=== PATIENT | female | born 1970 | race Caucasian/White ===

== ENCOUNTER 2016-08-08 06:28 | Day surgery (SDC) | payer OTHER ==
[2016-07-27 12:13] VITALS: BMI 23.2
[~2016-08-08 06:28] MED LIST: LACTATED RINGERS 1,000 ML IV SCH
[2016-08-08] MEDS ORDERED: LIDOCAINE 1% 20 ML VIAL (10MG/ML) FOR IV START INTRADERMA ONE (06:40)
[2016-08-08 06:50] VITALS: TEMP 98.4
[2016-08-08] MEDS ORDERED: BUPIVACAINE (PF) 0.5% 30 ML VIAL ONE (07:12)
[2016-08-08] MEDS ORDERED: MIDAZOLAM 2 MG/2 ML VIAL ONE (07:12)
[2016-08-08] MEDS ORDERED: TRIAMCINOLONE ACETONIDE 40 MG/ML 1 ML VIAL ONE (07:12)
[2016-08-08] MEDS ORDERED: fentaNYL (PF) 50 MCG/ML 2 ML AMP ONE (07:12)
--- NOTE | 2016-08-08 07:34 | P.PCN ---
Date of Procedure: 08/08/16 Preoperative Diagnosis: Right sacroiliitis Postoperative Diagnosis: Right sacroiliitis Procedure(s) Performed: Right sacroiliac joint steroid injection under fluoroscopic guidance Implants: Anesthesia: MAC Surgeon: Gt Pop Pathology: none sent Condition: stable Disposition: PACU Indications for Procedure: Operative Findings: Description of Procedure: The patient was seen in preop holding area consent was obtained patient was brought into the procedure room and placed in prone position. Skin was prepped with the ChloraPrep and draped in a sterile manner. Lidocaine 1% was used to numb the skin up at the target point that was chosen as follows: the right sacroiliac joint was identified on the AP view of fluoroscopy then the C-arm was tilted to the left oblique view to superimpose the anterior and posterior joint lines on each other and the target point was the inferior one third of this unified joint line. I used 22-gauge 3-1/2 inch Quincke spinal needle for this procedure and after entering the sacroiliac joint then injected 40 mg of Kenalog was 2 MLS of Marcaine 0.5%. patient tolerated procedure well.
[2016-08-08 07:44] VITALS: RESP 18
[2016-08-08 08:01] VITALS: BP 99/74; PULSE 66
[2016-08-08] MEDS ORDERED: IV FLUID CONTINUATION 1,000 ML IV ONE (08:02)
--- NOTE | 2016-08-08 11:30 | FL ---
EXAMINATION TYPE: FL guided pain mgmt statistic DATE OF EXAM: 08/08/2016 7:35 AM COMPARISON: NONE HISTORY: Pain Fluoroscopy support supplied to the referring clinician. See dictated report from anesthesia, 7 sec onds fluoroscopy time supplied, single intraoperative C-arm image documents the procedure
== END 2016-08-08 08:07 | disposition home or self-care (01) ==
LOC: ORPAIN 06:28
PROVIDERS: ATTEND Anesthesiology
DX: M46.1 Sacroiliitis, not elsewhere classified (principal); Z79.899 Other long term (current) drug therapy; Z88.1 Allergy status to other antibiotic agents; Z91.09 Other allergy status, other than to drugs and biological substances
CPT/HCPCS: J2250; J3301; J3010; G0260; 27096

== ENCOUNTER → 2016-09-05 | Outpatient (CLI) | payer OTHER ==
[2016-09-05 14:02] VITALS: BP 142/84; PULSE 80; RESP 20; TEMP 98.1
--- NOTE | 2016-09-06 12:01 | P.PN ---
Subjective This is follow-up visit for this patient with a history of severe and chronic low back pain secondary to right sacroiliitis, lumbar spondylosis with facet arthropathy, we have done interventional pain management injection, right side sacroiliac joint steroid injection, and patient gets more than 50% improvement in her low back pain on 2 different occasions , and is currently on pain medications 1-amitriptyline 25 mg daily at bedtime 2-baclofen 10 mg half a tablet every 8 hours Patient denies any side effects of the medication, denies excessive drowsiness or sleepiness, denies suicidal ideation, and reports that the current pain medication is NOT helping To control the pain and improve activity of daily living Physical Examinations : 1-Constitutiona : Cooperative , not in acute distress . 2-HEENT : nech ; supple , no Lymphadenopathy , no Thyromegaly , normal thyroid size . eyes : no ptosis , no icterus, no photophobia . ENT : normal of hearing , normal oropharynx , no Thrush . 3- Respiratory : Chest clear to auscultations Bilaterally , no wheezing , no Rhonchi . 4- Cardiovascular : regular rate and rhythem , S1 , S2 , no S3 , no S4. 5- Gastrointestinal : abdomen soft no tenderness , bowel sounds positive all four quadrents , no organomegally . 6- Genitourinary : Defferred . 7- neurologic : Cranial nerve II to XII intact , no focal neurological deffecit . 8-psychatric : alert , oriented X 3 , appropriate affect , intact judgment and insight . 9-Lymphatic : no Lymphadenopathy . 10- musculoskeltal : exams of the cervical spine = motor strength normal bilateral upper extremities facet loading test cervical area positive. exams of the Lumber spine = motor strength lower extremities ,thigh and legs .5/5 deep tendon reflexes : normal Knee Jerk , normal ankle Jerk . lumber facet Loading Test positive strait leg raising test negative Fabere test negative Range of motion: Range of motion in flexion of the lumbar spine 30 degrees Range of motion range of motion of extension of the lumbar spine 10 Sever tenderness over the Sacroiliac joint on the Right Assessment and plan = - Chronic low back pain secondary to lumbar spondylosis, and right sacroiliitis patient had a good result after the sacroiliac joint steroid injection done twice, and she gets more than 50% improvement in her low back pain after the sacroiliac joint steroid injection, for this reason patient will be good candidate to have radiofrequency ablation on the right side does sometimes of L5 -S1 and the lateral branches of right S1/right S2/right S3 Objective - Vital Signs Vital signs: Vital Signs Temp 98.1 F 09/05/16 13:54 Pulse 80 09/05/16 13:54 Resp 20 09/05/16 13:54 BP 142/84 09/05/16 13:54 Pulse Ox 96 09/05/16 13:54 Intake & Output 09/05/16 09/06/16 09/06/16 18:59 06:59 18:59 Weight 58.513 kg
== END | disposition home or self-care (01) ==
LOC: PNWHC3 13:39
PROVIDERS: ATTEND Specialist
DX: G89.29 Other chronic pain (principal); M47.896 Other spondylosis, lumbar region; M46.96 Unspecified inflammatory spondylopathy, lumbar region; M46.1 Sacroiliitis, not elsewhere classified; Z79.899 Other long term (current) drug therapy
CPT/HCPCS: 99211

== ENCOUNTER 2016-10-12 11:37 | Day surgery (SDC) | payer OTHER ==
[2016-10-11 14:27] VITALS: BMI 24.7
[2016-10-12 12:27] VITALS: TEMP 97.2
[2016-10-12] MEDS ORDERED: LIDOCAINE 1% 20 ML VIAL (10MG/ML) FOR IV START INTRADERMA ONE (12:36)
[2016-10-12] MEDS: LACTATED RINGERS 1,000 ML IV SCH ×2 (12:36→12:51)
[2016-10-12] MEDS ORDERED: MIDAZOLAM 2 MG/2 ML VIAL ONE (12:54)
[2016-10-12] MEDS ORDERED: TRIAMCINOLONE ACETONIDE 40 MG/ML 1 ML VIAL ONE (12:54)
[2016-10-12] MEDS ORDERED: fentaNYL (PF) 50 MCG/ML 2 ML AMP ONE (12:54)
[2016-10-12] MEDS ORDERED: IV FLUID CONTINUATION 650 ML IV ONE (13:35)
--- NOTE | 2016-10-12 13:37 | FL ---
EXAMINATION TYPE: FL guided pain mgmt statistic DATE OF EXAM: 10/12/2016 1:28 PM CLINICAL HISTORY: Low back pain. TECHNIQUE: Fluoroscopy. COMPARISON: None. FINDINGS: Fluoroscopic guidance was provided during pain relief procedure performed by Dr. Elmore . A total of 7 seconds of fluoroscopic time was utilized during the procedure and two spot images are a cquired. Images acquired shows needle localization level of the lumbosacral junction off the midline . IMPRESSION: As Above.
[2016-10-12 13:39] VITALS: RESP 18
--- NOTE | 2016-10-12 13:42 | P.PCN ---
Date of Procedure: 10/12/16 Surgeon: Mejia Elmore Pathology: none sent Condition: stable Disposition: PACU Description of Procedure: PREOPERATIVE DIAGNOSIS: Sacroiliitis; lumbar spondylosis without myelopathy POSTOPERATIVE DIAGNOSIS: Sacroiliitis; lumbar spondylosis without myelopathy PROCEDURE: Radiofrequency thermocoagulation/ablation of the Medial branch of L5 and S1, S2, S3 lateral branch levels under fluoroscopic guidance, right ANESTHESIA: Local with 1% lidocaine; IV sedation with Versed/fentanyl EBL: Minimal PROCEDURE INDICATION: The patient with low back pain secondary to sacroilitis with marked decrease in pain with prior sacroiliac joint injections. No use of blood thinners. PROCEDURE DESCRIPTION: The patient was seen and identified in the preoperative area. Risks, benefits, complications, and alternatives were discussed with the patient, with risks including but not limited to bleeding, infection, nerve damage, incomplete pain relief, and allergic reactions to medications. The patient agreed to proceed with the procedure and signed the informed consent after all questions were answered. IV was started. Vital signs were stable throughout the procedure. Patient was taken to the OR and time out was completed to verify proper procedure, laterality of pain and procedure, and allergies. The patient was placed in the prone position on procedure table and a pillow was placed under the abdomen to reduce lumbar lordosis. The lumbosacral area was prepped and draped in the usual sterile fashion. Vital signs were closely monitored during the procedure. L5 Medial Branch: Using right oblique fluoroscopy, the junction of the transverse process and the superior articular process of the top of the sacrum on the right side, which correspond to the fluoroscopic image of the "eye of the [place] dog" was identified. Skin and deeper tissues were localized with 1% lidocaine at the identified level. Then using fluoroscopy, a 10-cm 18-gauge radiofrequency cannula with a 10-mm active tip was was advanced under fluoroscopic guidance until contact was made with periosteum. At this level, the Sensory testing of L5 Medial branch was performed at 50 Hz and 0 to 1 volt with production of concordant pain. Motor stimulation was done at 2 Hz with stimulation of multifidus muscle contraction at (0.1-2.5) volts. No radicular symptoms or paresthesias were produced during the testing. Subsequently, the L5 medial branch was subjected to a radiofrequency ablation at a mode of 90 seconds at 80 degrees Celsius after negative motor and sensory testing as indicated and after injecting 0.5 ml of preservative free Lidocaine 1%. Then after the radiofrequency procedure was done, 1 mL of a solution containing 4 mL of 0.5% preservative-free lidocaine mixed with 40 mg of Kenalog. S1, S2, and S3 Medial branches: Using the oblique position, the right sacroiliac joint was identified. Skin and deeper tissues corresponding to the site were anesthetized with 1% lidocaine. Under fluoroscopic guidance, a total of three 10-cm 18-gauge radiofrequency cannula with 10-mm active tips were advanced to the lateral aspects of the S1, S2, and S3 vertebral foramina. Subsequently, sensory and motor testings were performed at a total of 3 segments at 50 Hz and 2 Hz respectively which produced concordant pain without radiculopathy or paresthesia. Then each segment was subjected to radiofrequency ablation at a mode of 90 seconds at 80 degrees Celsius for a total of 3 lesions with the bipolar technique. Then after the radiofrequency procedure was done, each site was injected with 1 mL of the aforementioned solution containing 4 mL of 0.5% preservative-free lidocaine mixed with 40 mg of Kenalog. The needles were withdrawn. Area was cleaned. Band-Aid was applied. COMPLICATIONS: None. COMMENTS: DISPOSITION / PLANS: The patient was placed in a supine position and transferred to the recovery area in a stable condition for observation and was discharged from the recovery room after meeting discharge criteria. Home discharge instructions given to the patient by the staff. The patient was reexamined prior to discharge. The patient will schedule a follow up in clinic in 4-6 weeks.
[2016-10-12 13:56] VITALS: BP 108/64; PULSE 80
--- NOTE | 2016-10-16 06:35 | CDI ---
Dear Dr. Elmore, Your Procedure Note documents that IV sedation with Versed/Fentanyl was provided. On the Pain Procedure Record, nothing is checked off under Anesthesia Plan. Also, per anesthesia the drugs used doesn't confer any specific method of anesthesia, i.e. Moderate/Conscious sedation or GA(General Anesthesia). It is how the practitioner uses them that creates the specific anesthesia method. This is documentation that need clarification. Please clarify if the sedation provided Wolfgang Esther was Moderate/Conscious or GA /Unconscious sedation. Please document this clarification as an addendum to the Procedure Note. Thank you for your time, Isaura Valdez,[facility] Outpatient Botany Technician Sandeep and [employer]apha[employer] [place] [email or web address] GARCIA
== END 2016-10-12 14:00 | disposition home or self-care (01) ==
LOC: ORPAIN 11:37
PROVIDERS: ATTEND Anesthesiology
DX: M46.1 Sacroiliitis, not elsewhere classified (principal); M47.816 Spondylosis without myelopathy or radiculopathy, lumbar region; Z79.899 Other long term (current) drug therapy; Z88.1 Allergy status to other antibiotic agents; Z91.09 Other allergy status, other than to drugs and biological substances
CPT/HCPCS: 64640 ×3; 64635; 99152; J2250; J3301; J3010

== ENCOUNTER → 2016-11-15 | Outpatient (CLI) | payer OTHER ==
--- NOTE | 2016-11-16 09:09 | P.CONS ---
History of Present Illness - Reason for Consult Consult date: 11/15/16 - History of Present Illness This is followed visit for this 46 years old female with a chronic history of severe low back pain, status post radiofrequency ablation of the medial branch/ L branches of L5-s1 , and lateral branches of S1-S2 and S3, which was done in , patient reported that a few weeks after the radiofrequency she started feeling severe low back pain with radiation to the right hip area, she denies any motor or sensory deficit, and she reported that the pain increases with any activity, she denies any fever or night sweats, she denies any change in the bowel movement or urination, the intensity of the pain fluctuates between 5/10 and increases occasionally to 8/10 Past Medical History Past Medical History: COPD, Fibromyalgia, GERD/Reflux Additional Past Medical History / Comment(s): Celiac History of Any Multi-Drug Resistant Organisms: None Reported Past Surgical History: Hysterectomy, Tubal Ligation Additional Past Surgical History / Comment(s): PAIN PROC.; Polyps removed from vocal cords Past Anesthesia/Blood Transfusion Reactions: No Reported Reaction Past Psychological History: Bipolar, Depression Additional Psychological History / Comment(s): NOT ON ANY RX Smoking Status: Current every day smoker Past Alcohol Use History: Occasional Additional Past Alcohol Use History / Comment(s): HAS BEEN SMOKING SINCE AGE 16 , DOWN TO 2 CIG. DAILY Past Drug Use History: Marijuana Additional Drug Use History / Comment(s): MARIJUANA 2X PER DAY; med. card - Past Family History Mother Family Medical History: Deep Vein Thrombosis (DVT) Father Family Medical History: Cancer Medications and Allergies Home Medications Medication Instructions Recorded Confirmed Type Flunisolide [Aerospan] 1 - 2 puff INHALATION BID PRN 07/27/16 11/15/16 History Omeprazole [Omeprazole] 1 tab PO DAILY 11/15/16 11/15/16 History Allergies Allergy/AdvReac Type Severity Reaction Status Date / Time cephalexin [From Keflex] Allergy Abdominal Verified 11/15/16 14:24 Pain,UTI gluten Allergy Abdominal Verified 11/15/16 14:24 Pain Physical Exam Physical Examinations : 1-Constitutiona : Cooperative , not in acute distress . 2-HEENT : nech ; supple , no Lymphadenopathy , no Thyromegaly , normal thyroid size . eyes : no ptosis , no icterus, no photophobia . ENT : normal of hearing , normal oropharynx , no Thrush . 3- Respiratory : Chest clear to auscultations Bilaterally , no wheezing , no Rhonchi . 4- Cardiovascular : regular rate and rhythem , S1 , S2 , no S3 , no S4. 5- Gastrointestinal : abdomen soft no tenderness , bowel sounds positive all four quadrents , no organomegally . 6- Genitourinary : Defferred . 7- neurologic : Cranial nerve II to XII intact , no focal neurological deffecit . 8-psychatric : alert , oriented X 3 , appropriate affect , intact judgment and insight . 9-Lymphatic : no Lymphadenopathy . 10- musculoskeltal : exams of the cervical spine = normal motor stregnth in the upper extremities bilaterally exams of the Lumber spine = normal moter stegnth lower extremities ,thigh and legs .5/5 deep tendon reflexes : normal Knee Jerk , normal ankle Jerk . negative lumber facet Loading Test strait leg raising test positive at 30 degree , RT , and negative on the left side , Fabere test positive RT and negative on the LT .side There is no tenderness over the sacroiliac joint bilaterally Results Comments: MRI of the lumbar spine done 11/11/2015= L2-3 bulging disc disease/L4 5 anterior tear and disc bulging and facet arthropathy and mild foraminal narrowing, L5-S1 mild facet degeneration and disc bulging Assessment and Plan Plan: Assessment and plan = - Chronic low back pain secondary to lumbar degenerative disc disease , lumbar spondylosis with facet arthropathy without myelopathy , and sacroiliitis Status post radiofrequency ablation of the right sacroiliac joint. The patient having symptoms mostly coming from the lumbar disc degeneration and lumbar spondylosis Patient signed the narcotic agreement , and was orally counseled not to overuse , abuse , divert, or sell medications ,and take them as prescribed only , and the patient was counseled against driving and while you are using the narcotic medication also not to use alcohol or any illicit drugs and the patient verbalized understanding that lack of compliance and could result in failure to renew narcotics prescriptions and possible discharge from the clinic - diagnoses, prognosis, and treatment options including but not limited to physical therapy, surgical interventions, interventional therapies and medication management including narcotics and adjuvant medication were discussed with the patient and all questions answered to the patient's satisfaction. Patient could benefit from amitriptyline 25 mg daily at bedtime, dispense 30 with 1 refill and also she could benefit from increasing the dose of baclofen to 10 mg 3 times a day, currently she is getting 5 mg 3 times a day, patient has medical marijuana card we cannot give him any opioid prescription, Angi will be scheduled to have lumbar epidural steroid injection under fluoroscopy guidance(right paramedian approach) Time with Patient: Less than 30
== END | disposition home or self-care (01) ==
LOC: PNWHC3 14:09
PROVIDERS: ATTEND Specialist
DX: M51.36 Other intervertebral disc degeneration, lumbar region (principal); M47.816 Spondylosis without myelopathy or radiculopathy, lumbar region; M46.96 Unspecified inflammatory spondylopathy, lumbar region; G89.29 Other chronic pain; J44.9 Chronic obstructive pulmonary disease, unspecified; K21.9 Gastro-esophageal reflux disease without esophagitis; M79.7 Fibromyalgia; F17.200 Nicotine dependence, unspecified, uncomplicated; F32.9 Major depressive disorder, single episode, unspecified; Z88.1 Allergy status to other antibiotic agents; Z79.899 Other long term (current) drug therapy
CPT/HCPCS: 99211

== ENCOUNTER 2016-12-19 08:16 | Day surgery (SDC) | payer OTHER ==
[2016-12-19 08:59] VITALS: RESP 18; TEMP 96.7
[2016-12-19] MEDS ORDERED: LIDOCAINE 1% 20 ML VIAL (10MG/ML) FOR IV START INTRADERMA ONE (09:14)
[2016-12-19] MEDS ORDERED: IOHEXOL 180 MG/ML 1 ML ML ONE (09:32)
[2016-12-19] MEDS ORDERED: MIDAZOLAM 2 MG/2 ML VIAL ONE (09:32)
[2016-12-19] MEDS ORDERED: DEXAMETHASONE SOD PHOSPHATE 10 MG/ML 1 ML VIAL ONE (09:32)
[2016-12-19] MEDS ORDERED: fentaNYL (PF) 50 MCG/ML 2 ML AMP ONE (09:32)
--- NOTE | 2016-12-19 10:01 | P.PCN ---
Date of Procedure: 12/19/16 Preoperative Diagnosis: Postoperative Diagnosis: Procedure(s) Performed: Implants: Surgeon: Mejia Elmore Pathology: none sent Condition: stable Disposition: PACU Indications for Procedure: Operative Findings: Description of Procedure: PREOPERATIVE DIAGNOSIS: 1-Lumbar radiculitis. POSTOPERATIVE DIAGNOSIS: 1-Lumbar radiculitis. PROCEDURE 1. Lumbar epidural steroid injection under fluoroscopic guidance at the L4-L5 level. 2. Lumbar epidurogram. ANESTHESIA: Local with 1% lidocaine; IV sedation with Versed/fentanyl. EBL: Minimal PROCEDURE INDICATION: The patient with low back pain and radiculitis symptoms unresponsive to conservative treatment. Fluoroscopy was used to optimize visualization of the needle placement and to maximize safety. No use of blood thinners. LESI #1 at this visit. PROCEDURE DESCRIPTION / TECHNIQUE: The patient was seen and identified in the preoperative area. Risks, benefits, complications, and alternatives were discussed with the patient, including but not limited to bleeding, infection, nerve damage, allergic reactions to medications, and incomplete pain relief. The patient agreed to proceed with the procedure and signed the consent after all questions were answered. IV was started, and vital signs were stable. Patient was taken to the OR and time out was completed to confirm patient position, procedure, laterality of pain, and allergies. The patient was placed in the prone position on procedure table and a pillow was placed under the abdomen to reduce lumbar lordosis. The lumbosacral area was prepped and draped in the usual sterile fashion. Critical pause was taken. Vital signs were closely monitored during the procedure. Conscious sedation was used during the procedure to decrease patients anxiety. Using anterior-posterior fluoroscopy, the L4-L5 interlaminar space was identified and the skin over this site was marked and then infiltrated with 1% lidocaine subcutaneously in a right paramedian fashion. Subsequently, a 20- gauge 3.5-inch Tuohy epidural needle was inserted and advanced toward the epidural space using the Loss of resistance technique and guided by AP and lateral fluoroscopy. The correct needle position in the epidural space was verified with the injection of 2 mL of the water soluble contrast dye Omnipaque 300 contrast and observing an excellent epidurogram with the epidural spread of the dye, after negative aspiration for blood and CSF and in the absence of paresthesias. Again after negative aspiration, a 8 ml mixture containing 20 mg of PF Decadron and 5 ml of preservative free Normal Saline, and 2 ml of preservative free lidocaine 1% solution was injected and a washout of epidurogram was seen. Needle was withdrawn intact, skin was cleansed, and bandages were applied. COMPLICATIONS: None COMMENTS: DISPOSITION / PLANS: The patient was placed in a supine position and transferred to the recovery area in a stable condition for observation. There was no evidence of lower extremity motor or sensory deficit after the procedure. Patient was discharged from the recovery room after meeting discharge criteria. Home discharge instructions were given to the patient by the staff. The patient was reexamined prior to discharge and there were no issues. The patient will schedule a follow up in the clinic in 2-4 weeks.
[2016-12-19] MEDS ORDERED: IV FLUID CONTINUATION 1,000 ML IV ONE (10:25)
[2016-12-19 10:34] VITALS: BP 125/83; PULSE 75
--- NOTE | 2016-12-19 10:46 | FL ---
Fluoroscopy INDICATION: Pain FINDINGS: Fluoroscopy time: 8 seconds. Images obtained: 3. IMPRESSIONS: 1. Documentation of fluoroscopy.
== END 2016-12-19 10:37 | disposition home or self-care (01) ==
LOC: ORPAIN 08:16
PROVIDERS: ATTEND Anesthesiology
DX: M54.16 Radiculopathy, lumbar region (principal); Z88.1 Allergy status to other antibiotic agents; Z91.02 Food additives allergy status
CPT/HCPCS: 62323; J2250; J1100; Q9965; J3010

== ENCOUNTER 2017-01-18 10:11 | Day surgery (SDC) | payer OTHER ==
[2017-01-16 16:12] VITALS: BMI 25.1
[2017-01-18 11:04] VITALS: TEMP 96.6
[2017-01-18] MEDS: LACTATED RINGERS 1,000 ML IV SCH ×2 (11:10→11:24)
[2017-01-18] MEDS ORDERED: LIDOCAINE 1% 20 ML VIAL (10MG/ML) FOR IV START INTRADERMA ONE (11:10)
[2017-01-18] MEDS ORDERED: MIDAZOLAM 2 MG/2 ML VIAL ONE (11:25)
[2017-01-18] MEDS ORDERED: fentaNYL (PF) 50 MCG/ML 2 ML AMP ONE (11:25)
[2017-01-18] MEDS ORDERED: DEXAMETHASONE SOD PHOS (MDV) 100 MG/10 ML VIAL ONE (11:25)
[2017-01-18] MEDS ORDERED: IOHEXOL 180 MG/ML 1 ML ML ONE (11:25)
--- NOTE | 2017-01-18 11:41 | P.PCN ---
Date of Procedure: 01/18/17 Preoperative Diagnosis: Postoperative Diagnosis: Procedure(s) Performed: PREOPERATIVE DIAGNOSIS: 1- Lumbar Degenerative Disc Diseases 2-Lumbar spondylosis with Facet arthropathy without myelopathy. 3-sacroiliitis POSTOPERATIVE DIAGNOSIS: 1-Lumber Degenerative Disc Diseases 2-Lumbar spondylosis with Facet arthropathy without myelopathy. 3-sacroiliitis PROCEDURE 1. Lumbar epidural steroid injection under fluoroscopic guidance at the L5-S1 level. 2. Lumbar epidurogram. ANESTHESIA: Local with 1% lidocaine 3 ml and IV sedation with Versed 2 mg , and fentanyle 100 Mcg EBL: Minimal PROCEDURE INDICATION: The patient with low back pain and radiculitis symptoms unresponsive to conservative treatment. Fluoroscopy was used to optimize visualization of the needle placement and to maximize safety. PROCEDURE DESCRIPTION / TECHNIQUE: The patient was seen and identified in the preoperative area. Risks, benefits , complications including but not limited to infections ,bleeding ,allergic reaction to the medications ,nerve damage and not complete pain releife , and alternatives were discussed with the patient. The patient agreed to proceed with the procedure and signed the consent. IV was started, and vital signs were stable. Patient was taken to the OR and time out was completed. The patient was placed in the prone position on procedure table and a pillow was placed under the abdomen to reduce lumbar lordosis. The lumbosacral area was prepped and draped in the usual sterile fashion.ere closely monitored during the procedure. Conscious sedation was used during the procedure to decrease patients anxiety. Vital signs was monitered during the entire procedure. Using anterior-posterior fluoroscopy, the L5-S1 interlaminar space was identified and the skin over this site was marked and then infiltrated with 1% lidocaine subcutaneously. Subsequently, a 20-gauge Tuohy epidural needle was inserted and advanced toward the epidural space using the ``Loss of resistance technique and guided by AP and lateral fluoroscopy. The correct needle position in the epidural space was verified with the injection of 2 mL of the water soluble contrast dye Omnipaque 180 contrast and observing an excellent epidurogram with the epidural spread of the dye, after negative aspiration for blood and CSF and in the absence of paresthesias. Again after negative aspiration, a 6 ml mixture containing 20 mg of Dexamethasone and 2 ml of preservative free Normal Saline, and 2 ml of preservative free lidocaine 1% solution was injected and a washout of epidurogram was seen. Needle was withdrawn intact, skin was cleansed, and bandages were applied. COMPLICATIONS: None DISPOSITION / PLANS: The patient was placed in a supine position and transferred to the recovery area in a stable condition for observation. There was no evidence of lower extremity motor or sensory deficit after the procedure. Patient was discharged from the recovery room after meeting discharge criteria. Home discharge instructions were given to the patient by the staff. The patient was reexamined prior to discharge. The patient will schedule a follow up in the clinic in 2-4 weeks. Implants: Indications for Procedure: Operative Findings: Description of Procedure:
[2017-01-18] MEDS ORDERED: IV FLUID CONTINUATION 1,000 ML IV ONE (11:47)
[2017-01-18 11:51] VITALS: RESP 18
--- NOTE | 2017-01-18 11:52 | FL ---
EXAMINATION TYPE: FL guided pain mgmt statistic DATE OF EXAM: 01/18/2017 HISTORY: Flouroscopy time 2 seconds of fluoroscopy provided. IMPRESSION: 1. Fluoroscopy time.
[2017-01-18 12:10] VITALS: BP 115/74; PULSE 74
== END 2017-01-18 12:31 | disposition home or self-care (01) ==
LOC: ORPAIN 10:11
PROVIDERS: ATTEND Specialist
DX: M51.16 Intervertebral disc disorders with radiculopathy, lumbar region (principal); M47.26 Other spondylosis with radiculopathy, lumbar region; M46.96 Unspecified inflammatory spondylopathy, lumbar region; M46.1 Sacroiliitis, not elsewhere classified; J44.9 Chronic obstructive pulmonary disease, unspecified; K90.0 Celiac disease; Z88.1 Allergy status to other antibiotic agents; Z91.02 Food additives allergy status
CPT/HCPCS: 62323; J2250; Q9965; J3010; J1100

== ENCOUNTER → 2017-02-07 | Outpatient (CLI) | payer OTHER ==
[2017-02-07 12:20] VITALS: BP 108/63; PULSE 80; RESP 18; TEMP 98
--- NOTE | 2017-02-07 12:46 | P.PN ---
Progress Note - Text Patient returns for followup for chronic back pain with radiation to hips. Patient recently underwent LESI x 2 with little relief. Patient continues on THC, baclofen, and Elavil medications for pain with good relief. Patient denies adverse drug effects from medications. Today, pt denies new-onset weakness, bowel/bladder incontinence, or any other signs or symptoms of cauda equina syndrome. There are no signs of acute intoxication, and no indications of medication diversion or overuse. In addition to above, 13-point review of systems is also negative for chest pain , shortness of breath, changes in vision, changes in hearing, new onset weakness , abdominal pain, diarrhea, extreme fatigue, malaise, fever, skin changes, homicidal or suicidal ideation, or bowel or bladder incontinence. Vital Signs: Reviewed in EMR Gen: WDWN, AAOx3, NAD HEENT: NCAT, EOMI, hearing grossly normal Pulm: resp unlabored Abd: soft, NT, ND Neck: supple, trachea midline ROM in flexion lumbar spine: reduced ROM in extension lumbar spine: reduced with greater restriction Lumbar paravertebral tenderness: + Facet loading: ++ bilateral SI joint tenderness: + R side David's test: + R side Straight leg raise: neg Neuro: CN II-XII grossly intact, muscle strength lower extremities PRESERVED Imaging: Reviewed in EMR Assessment: 1. lumbar spondylosis without myelopathy 2. SIJ dysfunction 3. chronic pain syndrome Plan: 1. Explanation: Opioid and psychological risk scores were reviewed. Diagnoses , prognoses, and multiple treatment options including but not limited to physical therapy, interventional therapies, adjuvant medical therapies, narcotic medication therapies, and surgery were discussed with the patient and all questions were answered to the patient's satisfaction. 2. Opioid agreement: no opioids prescribed today 3. Counseling: The patient was counseled extensively on SMOKING CESSATION, BODY MASS INDEX, EXERCISE. Specifically, the patient was instructed regarding the importance of smoking cessation, obesity, and exercise in the context of both chronic pain and overall health. 4. Procedures: lumbar MBB bilateral 5. Consultations: None 6. Investigations: None 7. Medications: baclofen increased to 15 mg TID (gave prescription for baclofen 5 mg #90 in addition to current), patient has refill for Elavil 8. Disposition: f/u for procedure as scheduled PQRS measures: 1-Patient's medications are documented in the chart. 2-Tobacco use is positive 3-Patient has not had a pneumococcal vaccine. 4-Advanced care planning discussed, patient unable to give. 5-Opioid contract signed with the patient. 6-Pain positive, follow-up visit or procedure scheduled 7-Patient's blood pressure measured and documented, and WNL. 8-Patient's weight was measured, and body mass index within the normal limits. 9-Patient WAS NOT identified as an unhealthy alcohol user.
== END | disposition home or self-care (01) ==
LOC: PNWHC3 12:04
PROVIDERS: ATTEND Anesthesiology
DX: M47.816 Spondylosis without myelopathy or radiculopathy, lumbar region (principal); M53.3 Sacrococcygeal disorders, not elsewhere classified; G89.4 Chronic pain syndrome
CPT/HCPCS: 99211

== ENCOUNTER 2017-02-27 06:18 | Day surgery (SDC) | payer OTHER ==
[2017-02-26 09:39] VITALS: BMI 23.6
[2017-02-27] MEDS ORDERED: LIDOCAINE 1% 20 ML VIAL (10MG/ML) FOR IV START INTRADERMA ONE (07:13)
[2017-02-27] MEDS ORDERED: LACTATED RINGERS 1,000 ML IV SCH (07:15)
[2017-02-27 08:15] VITALS: RESP 18
--- NOTE | 2017-02-27 08:43 | P.PCN ---
Date of Procedure: 02/27/17 Preoperative Diagnosis: Postoperative Diagnosis: Procedure(s) Performed: Implants: Surgeon: Mejia Elmore Pathology: none sent Condition: stable Disposition: PACU Indications for Procedure: Operative Findings: Description of Procedure: PREOPERATIVE DIAGNOSIS: L3-L4, L4-L5, and L5-S1 spondylosis without myelopathy and facet arthropathy. POSTOPERATIVE DIAGNOSIS: L3-L4, L4-L5, and L5-S1 spondylosis without myelopathy and facet arthropathy. PROCEDURE DESCRIPTION: Patient presents for L3-L4, L4-L5 and L5-S1 diagnostic medial branch blocks under fluoroscopic guidance. The procedure is performed using fluoroscopic guidance during needle placement to assure proper position and maximize safety. ANESTHESIA: Local with 1% lidocaine; conscious sedation with Versed only EBL: Minimal PROCEDURE INDICATION: Patient with lumbar spondylosis and facet arthropathy signs and symptoms, here for diagnostic medial branch block #1. Pt does not take any blood thinning medications. PROCEDURE DESCRIPTION: The patient was seen and identified in the preoperative area. Risks, benefits, complications, and alternatives were discussed with the patient (including but not limited to incomplete pain relief, bleeding, infection, nerve damage, and allergies to medications), the patient agreed to proceed with the procedure and signed the consent after all questions were answered. Patient was taken to the OR and time out was completed to verify proper patient, position, laterality of pain, and allergies. Pt was placed in the prone position and a pillow was placed under the abdomen to reduce lumbar lordosis. The lumbosacral area was prepped and draped in the usual sterile fashion. Using oblique fluoroscopy, the eye of the "Franklin dog" of right L4 vertebral body, which corresponds to the path of the medial branch originating from the level above, which is L3 in this case, was identified. Subsequently, a 22-gauge 3.5-inch spinal needle was inserted under fluoroscopic guidance toward the eye of the "Franklin dog" of the right L4 vertebral body, corresponding to the junction of the superior articular process and the transverse process of the pedicle of the same level. After needle tip confirmation on lateral view and after negative aspiration for CSF and blood and without paresthesias, 1 mL of a 6 ml solution of 0.5% preservative-free bupivacaine and 40 mg Kenalog was injected. Subsequently the needle was withdrawn intact and the same procedure was repeated for the right L4, right L5, left L3, left L4, and left L5 medial branches which together with right L3 medial branch correspond to the sensory innervation of the bilateral L3-L4, L4-L5, and L5-S1 facet joints. Needle was withdrawn intact after each injection. At the end of the procedure, the skin was cleansed and bandages were applied. COMPLICATIONS: None. DISPOSITION/PLAN: The patient taken to the recovery area after the procedure in a stable condition for observation. Patient was reexamined prior to discharge and there were no issues. Patient was discharged home, accompanied by an adult, after meeting discharged criteria. Discharge instructions were give to the patient by the staff. Patient was specifically instructed not to drive today and to rest for the rest of the day. If relief, patient will follow up for second diagnostic LMBB.
[2017-02-27 08:45] VITALS: BP 135/87; PULSE 74
[2017-02-27] MEDS ORDERED: IV FLUID CONTINUATION 1,000 ML IV ONE (08:45)
--- NOTE | 2017-02-27 08:59 | FL ---
EXAMINATION TYPE: FL guided pain mgmt statistic DATE OF EXAM: 02/27/2017 FLUOROSCOPY Fluoroscopy time of 15 seconds was used during bilateral medial branch block. 6 image/s document/s t he procedure.
== END 2017-02-27 08:48 | disposition home or self-care (01) ==
LOC: ORPAIN 06:18
PROVIDERS: ATTEND Anesthesiology
DX: G89.4 Chronic pain syndrome (principal); M47.816 Spondylosis without myelopathy or radiculopathy, lumbar region; M47.817 Spondylosis without myelopathy or radiculopathy, lumbosacral region; M46.96 Unspecified inflammatory spondylopathy, lumbar region; M46.97 Unspecified inflammatory spondylopathy, lumbosacral region; M53.3 Sacrococcygeal disorders, not elsewhere classified; Z79.899 Other long term (current) drug therapy; Z72.0 Tobacco use
CPT/HCPCS: 64493; 64494; 64495; 99152; J2250; J3301; 99153

== ENCOUNTER 2017-03-20 06:17 | Day surgery (SDC) | payer OTHER ==
[2017-03-14 15:37] VITALS: BMI 21.9
[2017-03-20 07:08] VITALS: TEMP 97.2
[2017-03-20] MEDS ORDERED: LACTATED RINGERS 1,000 ML IV ONE (07:13)
[2017-03-20] MEDS ORDERED: LIDOCAINE 1% 20 ML VIAL (10MG/ML) FOR IV START INTRADERMA ONE (07:13)
[2017-03-20] MEDS ORDERED: LACTATED RINGERS 1,000 ML IV SCH (08:00)
--- NOTE | 2017-03-20 08:09 | P.PCN ---
Date of Procedure: 03/20/17 Preoperative Diagnosis: Postoperative Diagnosis: Procedure(s) Performed: Implants: Surgeon: Mejia Elmore Pathology: none sent Condition: stable Disposition: PACU Indications for Procedure: Operative Findings: Description of Procedure: PREOPERATIVE DIAGNOSIS: L3-L4, L4-L5, and L5-S1 spondylosis without myelopathy and facet arthropathy. POSTOPERATIVE DIAGNOSIS: L3-L4, L4-L5, and L5-S1 spondylosis without myelopathy and facet arthropathy. PROCEDURE DESCRIPTION: Patient presents for L3-L4, L4-L5 and L5-S1 diagnostic medial branch blocks under fluoroscopic guidance. The procedure is performed using fluoroscopic guidance during needle placement to assure proper position and maximize safety. ANESTHESIA: Local with 1% lidocaine; conscious sedation EBL: Minimal PROCEDURE INDICATION: Patient with lumbar facet arthropathy signs and symptoms, here for diagnostic medial branch block #2 after one week's >70% relief from first MBB. Pt does not take any blood thinning medications. PROCEDURE DESCRIPTION: The patient was seen and identified in the preoperative area. Risks, benefits, complications, and alternatives were discussed with the patient (including but not limited to incomplete pain relief, bleeding, infection, nerve damage, and allergies to medications), the patient agreed to proceed with the procedure and signed the consent after all questions were answered. Patient was taken to the OR and time out was completed to verify proper patient, position, laterality of pain, and allergies. Pt was placed in the prone position and a pillow was placed under the abdomen to reduce lumbar lordosis. The lumbosacral area was prepped and draped in the usual sterile fashion. Using oblique fluoroscopy, the eye of the "Franklin dog" of right L4 vertebral body, which corresponds to the path of the medial branch originating from the level above, which is L3 in this case, was identified. Subsequently, a 22-gauge 3.5-inch spinal needle was inserted under fluoroscopic guidance toward the eye of the "Franklin dog" of the right L4 vertebral body, corresponding to the junction of the superior articular process and the transverse process of the pedicle of the same level. After needle tip confirmation on lateral view and after negative aspiration for CSF and blood and without paresthesias, 1 mL of a 6 ml solution of 5 ml 0.5% preservative-free bupivacaine and 40 mg Kenalog was injected. Subsequently the needle was withdrawn intact and the same procedure was repeated for the right L4, right L5, left L3, left L4, and left L5 medial branches which together with right L3 medial branch correspond to the sensory innervation of the bilateral L3-L4, L4-L5, and L5-S1 facet joints. Needle was withdrawn intact after each injection. At the end of the procedure, the skin was cleansed and bandages were applied. COMPLICATIONS: None. DISPOSITION/PLAN: The patient taken to the recovery area after the procedure in a stable condition for observation. Patient was reexamined prior to discharge and there were no issues. Patient was discharged home, accompanied by an adult, after meeting discharged criteria. Discharge instructions were give to the patient by the staff. Patient was specifically instructed not to drive today and to rest for the rest of the day. If relief, patient will follow up for right lumbar RFA.
[2017-03-20] MEDS ORDERED: IV FLUID CONTINUATION 1,000 ML IV ONE (08:16)
[2017-03-20 08:31] VITALS: BP 120/81; PULSE 63; RESP 16
--- NOTE | 2017-03-20 08:39 | FL ---
Fluoroscopy History: Pain 7 SEC FLUORO
== END 2017-03-20 08:44 | disposition home or self-care (01) ==
LOC: ORPAIN 06:17
PROVIDERS: ATTEND Anesthesiology
DX: M47.816 Spondylosis without myelopathy or radiculopathy, lumbar region (principal); M47.817 Spondylosis without myelopathy or radiculopathy, lumbosacral region; M46.96 Unspecified inflammatory spondylopathy, lumbar region; M46.97 Unspecified inflammatory spondylopathy, lumbosacral region; K21.9 Gastro-esophageal reflux disease without esophagitis; Z79.899 Other long term (current) drug therapy; Z88.1 Allergy status to other antibiotic agents; Z91.09 Other allergy status, other than to drugs and biological substances
CPT/HCPCS: 64493; 64494; 64495; 99152; J2250; J3301

== ENCOUNTER → 2017-05-03 | Outpatient (CLI) | payer OTHER ==
[2017-05-03 14:20] VITALS: BP 126/79; PULSE 89; RESP 18; TEMP 98
--- NOTE | 2017-05-03 14:51 | P.CONS ---
History of Present Illness - Reason for Consult Consult date: 05/03/17 - History of Present Illness this is 46 years old female, is here for follow-up visit after diagnostic medial branch block lumbar area done twice,patient reported that she had more than 50% improvement in her low back pain after the diagnostic medial branch block on 2 different occasions, and she is here to discuss the results of the injection, she denies any motor or sensory deficit she denies any fever or night sweats Past Medical History Past Medical History: COPD, Fibromyalgia, GERD/Reflux, Osteoarthritis (OA) Additional Past Medical History / Comment(s): Celiac, ARTHRITIS IN BACK, ALPHA ONE LUNG DISEASE History of Any Multi-Drug Resistant Organisms: None Reported Past Surgical History: Hysterectomy, Tubal Ligation Additional Past Surgical History / Comment(s): PAIN PROC. Polyps removed from vocal cords. Past Anesthesia/Blood Transfusion Reactions: No Reported Reaction Smoking Status: Current every day smoker - Past Family History Mother Family Medical History: Deep Vein Thrombosis (DVT) Father Family Medical History: Cancer Medications and Allergies Home Medications Medication Instructions Recorded Confirmed Type Flunisolide [Aerospan] 1 - 2 puff INHALATION BID PRN 07/27/16 05/03/17 History Omeprazole [Omeprazole] 20 mg PO BID 11/15/16 05/03/17 History Amitriptyline HCl [Elavil] 25 mg PO HS 01/16/17 05/03/17 History Baclofen [Lioresal] 15 mg PO Q8H 02/26/17 05/03/17 History Allergies Allergy/AdvReac Type Severity Reaction Status Date / Time cephalexin [From Keflex] Allergy Abdominal Verified 05/03/17 14:07 Pain,UTI gluten Allergy Abdominal Verified 05/03/17 14:07 Pain Physical Exam Vitals: Vital Signs Temp Pulse Resp BP Pulse Ox 05/03/17 14:11 98 F 89 18 126/79 96 Intake and Output 05/02/17 05/03/17 05/03/17 22:59 06:59 14:59 Other: Weight 53.977 kg Patient Weight 05/04/17 06:59 Weight 53.977 kg Physical Examinations : 1-Constitutiona : Cooperative , not in acute distress . 2-HEENT : nech ; supple , no Lymphadenopathy , normal thyroid size . eyes : no ptosis , no icterus, no photophobia . ENT : normal of hearing , normal oropharynx , no Thrush . 3- Respiratory : Chest clear to auscultations Bilaterally , no wheezing , no Rhonchi . 4- Cardiovascular : regular rate and rhythem , S1 , S2 , no S3 , no S4. 5- Gastrointestinal : abdomen soft no tenderness , bowel sounds positive all four quadrents , no organomegally . 6- Genitourinary : Defferred . 7- neurologic : Cranial nerve II to XII intact , no focal neurological deffecit . 8-psychatric : alert , oriented X 3 , appropriate affect , intact judgment and insight . 9-Lymphatic : no Lymphadenopathy . 10- musculoskeltal : , Lumber spine = normal moter stegnth lower extremities ,thigh and legs .5/5 deep tendon reflexes : normal Knee Jerk , normal ankle Jerk . positive lumber facet Loading Test strait leg raising test positive at 30 degree , RT ,LT , Fabere test positive RT and positive LT . Sever tenderness over the Sacroiliac joint on the Right , and Left side Assessment and Plan Plan: Assessment and plan= chronic low back pain secondary to lumbar degenerative disc disease , lumbar spondylosis with lumbar facet arthropathy ,and sacroiliitis Interventional pain management=patient could benefit from radiofrequency ablation of the medial branch lumbar area L3-4/L4-5 /L5-S1and if she continues to have pain after the radiofrequency ablation of the medial branch lumbar area then we will coast of doing bilateral sacroiliac joint steroid injection , Time with Patient: Less than 30
--- NOTE | 2017-05-03 15:30 | P.PN ---
Progress Note - Text this is an addendum to the note dictated today= she reported that she had a lot of muscle spasms especially at night and she is currently on baclofen 15 mg every 8 hours, for this reason I will increase the baclofen dose to 20 mg every 8 hours, patient informed about the side effect of the baclofen drowsiness sleepiness and risk of withdrawal symptoms if she stopped acutely,
== END | disposition home or self-care (01) ==
LOC: PNWHC3 13:53
PROVIDERS: ATTEND Specialist
DX: M51.36 Other intervertebral disc degeneration, lumbar region (principal); M47.816 Spondylosis without myelopathy or radiculopathy, lumbar region; M46.86 Other specified inflammatory spondylopathies, lumbar region; M46.1 Sacroiliitis, not elsewhere classified; M79.7 Fibromyalgia; J44.9 Chronic obstructive pulmonary disease, unspecified; K21.9 Gastro-esophageal reflux disease without esophagitis; M19.90 Unspecified osteoarthritis, unspecified site; F17.200 Nicotine dependence, unspecified, uncomplicated; Z79.899 Other long term (current) drug therapy
CPT/HCPCS: 99211

== ENCOUNTER 2017-05-29 07:30 | Day surgery (SDC) | payer OTHER ==
[2017-05-23 14:45] VITALS: BMI 20.9
[2017-05-29] MEDS ORDERED: LACTATED RINGERS 1,000 ML IV SCH (08:00)
[2017-05-29 08:14] VITALS: RESP 18; TEMP 98.1
[2017-05-29] MEDS ORDERED: LACTATED RINGERS 1,000 ML IV ONE (08:15)
[2017-05-29] MEDS ORDERED: LIDOCAINE 1% 20 ML VIAL (10MG/ML) FOR IV START INTRADERMA ONE (08:15)
[2017-05-29] MEDS ORDERED: IV FLUID CONTINUATION 1,000 ML IV ONE (09:36)
--- NOTE | 2017-05-29 09:40 | FL ---
EXAMINATION TYPE: FL guided pain mgmt statistic DATE OF EXAM: 05/29/2017 CLINICAL HISTORY: Low back pain. TECHNIQUE: Fluoroscopy. COMPARISON: None. FINDINGS: Fluoroscopic guidance was provided during pain relief procedure performed by Dr. Elmore . A total of 8 seconds of fluoroscopic time was utilized during the procedure and 3 spot images are acq uired. Images acquired shows needle localization at several levels in the lower lumbar spine. IMPRESSION: As Above.
[2017-05-29 09:55] VITALS: BP 105/69; PULSE 69
--- NOTE | 2017-05-29 10:05 | P.PCN ---
Date of Procedure: 05/29/17 Surgeon: Mejia Elmore Pathology: none sent Condition: stable Disposition: PACU Description of Procedure: PREOPERATIVE DIAGNOSIS: Lumbar spondylosis without myelopathy and facet arthropathy POSTOPERATIVE DIAGNOSIS: Lumbar spondylosis without myelopathy and facet arthropathy PROCEDURES: Right Radiofrequency thermocoagulation, L3-L4, L4-L5, and L5-S1 medial branch, with fluoroscopic guidance. ANESTHESIA: 1% lidocaine plain; Conscious sedation with versed/fentanyl EBL: Minimal PROCEDURE INDICATION: The patient with low back pain secondary to lumbar arthropathy who had more than 50% relief of pain with previous diagnostic lumbar medial branch block with bupivacaine. Patient presents for RFA today; no use of blood thinners. PROCEDURE DESCRIPTION / TECHNIQUE: The patient was seen and identified in the preoperative area. Risks, benefits, complications, and alternatives were discussed with the patient (including but not limited to incomplete pain relief , bleeding, infection, nerve damage, and allergies to medications), the patient agreed to proceed with the procedure and signed the consent after all questions were answered. Patient was taken to the OR and time out was completed to verify proper patient , position, laterality of pain, and allergies. Pt was placed in the prone position. IV was started. Vital signs remained stable throughout the procedure. A pillow was placed under the patients chest to decrease lordosis. The lumbosacral area was prepped and draped in the usual sterile fashion. Vital signs were closely monitored during the procedure. Conscious sedation was used during the procedure to decrease patients anxiety. Using AP and then oblique fluoroscopy, the eye of the Franklin dog corresponding to the connection between the superior and transverse articular processes of right L4, L5 and top of the sacrum were identified, marked, and localized with 1% lidocaine. Subsequently, a 20 gauge, 100-mm radiofrequency cannula with a 10-mm active tip was advanced guided by fluoroscopy to each of the eyes of the Franklin dog at right L3, L4, and L5 medial branches. Each site then underwent sensory testing at 50 Hz and 0 to 1 volt and motor testing at 2 Hz and 0 to 3 volt with local stimulation, but no radicular symptoms down the legs. Thereafter the right L3, L4, and L5 medial branch sites underwent radiofrequency thermocoagulation at 80 degrees Celsius for 90 seconds after injecting 0.5 ml of PF lidocaine 1%. After thermocoagulation, 1 ml of the block solution containing Kenalog 40 mg and 2 mL of preservative-free normal saline was injected at the right L3, L4, and L5 medial branch levels after negative aspiration of CSF and blood and with no paresthesias. Cannulas were retracted while injecting lidocaine 1% until the needles were removed. At the end of the procedure, the skin was cleansed and bandages were applied. COMPLICATIONS: No acute complications. DISPOSITION / PLANS: The patient was placed in a supine position and transferred to the recovery area in a stable condition for observation and was discharged from the recovery room after meeting discharge criteria. Home discharge instructions given to the patient by the staff. The patient was reexamined prior to discharge. The patient will schedule a follow up for left lumbar RFA next.
== END 2017-05-29 10:09 | disposition home or self-care (01) ==
LOC: ORPAIN 07:30
PROVIDERS: ATTEND Anesthesiology
DX: G89.29 Other chronic pain (principal); M51.36 Other intervertebral disc degeneration, lumbar region; M47.816 Spondylosis without myelopathy or radiculopathy, lumbar region; M46.96 Unspecified inflammatory spondylopathy, lumbar region; M46.1 Sacroiliitis, not elsewhere classified; J44.9 Chronic obstructive pulmonary disease, unspecified; M79.7 Fibromyalgia; K21.9 Gastro-esophageal reflux disease without esophagitis; M19.90 Unspecified osteoarthritis, unspecified site; F17.200 Nicotine dependence, unspecified, uncomplicated; Z88.1 Allergy status to other antibiotic agents; Z91.02 Food additives allergy status; Z79.899 Other long term (current) drug therapy; Z82.49 Family history of ischemic heart disease and other diseases of the circulatory system; Z80.9 Family history of malignant neoplasm, unspecified
CPT/HCPCS: 64635; 64636 ×2; 99152; J2250; J3301; J3010

== ENCOUNTER 2017-07-03 09:19 | Day surgery (SDC) | payer OTHER ==
[2017-06-27 12:21] VITALS: BMI 21.0
[2017-07-03 10:48] VITALS: RESP 16; TEMP 98.2
[2017-07-03] MEDS: LACTATED RINGERS 1,000 ML IV SCH ×2 (10:50→10:56)
[2017-07-03] MEDS ORDERED: LIDOCAINE 1% 20 ML VIAL (10MG/ML) FOR IV START INTRADERMA ONE (10:51)
--- NOTE | 2017-07-03 11:22 | P.PCN ---
Date of Procedure: 07/03/17 Surgeon: Mejia Elmore Pathology: none sent Condition: stable Disposition: PACU Description of Procedure: PREOPERATIVE DIAGNOSIS: Lumbar spondylosis without myelopathy and facet arthropathy POSTOPERATIVE DIAGNOSIS: Lumbar spondylosis without myelopathy and facet arthropathy PROCEDURES: Left Radiofrequency thermocoagulation, L3-L4, L4-L5, and L5-S1 medial branch, with fluoroscopic guidance. ANESTHESIA: 1% lidocaine plain; Conscious sedation with versed/fentanyl EBL: Minimal PROCEDURE INDICATION: The patient with low back pain secondary to lumbar arthropathy who had more than 50% relief of pain with previous diagnostic lumbar medial branch block x 2 with bupivacaine. Patient presents for left lumbar RFA today; no use of blood thinners. PROCEDURE DESCRIPTION / TECHNIQUE: The patient was seen and identified in the preoperative area. Risks, benefits, complications, and alternatives were discussed with the patient (including but not limited to incomplete pain relief , bleeding, infection, nerve damage, and allergies to medications), the patient agreed to proceed with the procedure and signed the consent after all questions were answered. Patient was taken to the OR and time out was completed to verify proper patient , position, laterality of pain, and allergies. Pt was placed in the prone position. IV was started. Vital signs remained stable throughout the procedure. A pillow was placed under the patients chest to decrease lordosis. The lumbosacral area was prepped and draped in the usual sterile fashion. Vital signs were closely monitored during the procedure. Conscious sedation was used during the procedure to decrease patients anxiety. Using AP and then oblique fluoroscopy, the eye of the Franklin dog corresponding to the connection between the superior and transverse articular processes of left L3, L4, L5 and top of the sacrum were identified, marked, and localized with 1% lidocaine. Subsequently, a 20 gauge, 100-mm radiofrequency cannula with a 10-mm active tip was advanced guided by fluoroscopy to each of the eyes of the Franklin dog at all four medial branches. Each site then underwent sensory testing at 50 Hz and 0 to 1 volt and motor testing at 2 Hz and 0 to 3 volt with local stimulation, but no radicular symptoms down the legs. Thereafter all four medial branch sites underwent radiofrequency thermocoagulation at 80 degrees Celsius for 90 seconds after injecting 0.5 ml of PF lidocaine 1%. After thermocoagulation, 1 ml of the block solution containing Kenalog 40 mg and 2 mL of preservative-free normal saline was injected at each of the four medial branch levels after negative aspiration of CSF and blood and with no paresthesias. Cannulas were retracted while injecting lidocaine 1% until the needles were removed. At the end of the procedure, the skin was cleansed and bandages were applied. COMPLICATIONS: No acute complications. DISPOSITION / PLANS: The patient was placed in a supine position and transferred to the recovery area in a stable condition for observation and was discharged from the recovery room after meeting discharge criteria. Home discharge instructions given to the patient by the staff. The patient was reexamined prior to discharge. The patient will schedule a follow up in clinic in 2-4 weeks.
[2017-07-03] MEDS ORDERED: IV FLUID CONTINUATION 1,000 ML IV ONE (11:27)
--- NOTE | 2017-07-03 11:28 | FL ---
Fluoroscopy History: PAIN 13 sec fluoro
[2017-07-03 11:51] VITALS: BP 108/72; PULSE 75
== END 2017-07-03 12:00 | disposition home or self-care (01) ==
LOC: ORPAIN 09:19
PROVIDERS: ATTEND Anesthesiology
DX: M47.816 Spondylosis without myelopathy or radiculopathy, lumbar region (principal); M46.96 Unspecified inflammatory spondylopathy, lumbar region; I10 Essential (primary) hypertension; K21.9 Gastro-esophageal reflux disease without esophagitis; Z88.1 Allergy status to other antibiotic agents; Z91.048 Other nonmedicinal substance allergy status
CPT/HCPCS: 64635; 64636 ×2; J2250; J3301; J3010; 99152

== ENCOUNTER → 2017-08-15 | Outpatient (CLI) | payer OTHER ==
[2017-08-15 11:41] VITALS: BP 108/71; PULSE 77; RESP 16
--- NOTE | 2017-08-15 12:15 | P.PN ---
Subjective Progress Note Date: 08/15/17 Principal diagnosis: This is follow-up visit for this patient with a history of severe and chronic low back pain secondary to lumbar degenerative disc disease, lumbar spondylosis with facet arthropathy, we did interventional pain management injection, the frequency ablation of the medial branch lumbar area May and June 2017 , befor that we've done lumbar epidural steroid injections, she reported that her low back pain improved significantly after the radiofrequency , and this is complaining of severe bilateral hip pain , or intense on the left side , and she is complaining of severe neck pain which is increased with any neck movement the pain in the neck area radiated towards the shoulder blade area bilaterally ,she denies any radicular symptoms to the upper extremities , she denies any motor or sensory deficit patient currently on 2-amitriptyline 25 mg daily at bedtime Prescription refills from her primary care Patient denies any side effects of the medication, denies excessive drowsiness or sleepiness, denies suicidal ideation, and reports that the current pain medication is NOT helping To control the pain and improve activity of daily living . Patient denies any motor or sensory deficit, denies change in bowel movement or urination, patient denies any fever or night sweats and patient here for follow-up visit and medication refill , she tried Lyrica in the past without any benefit Objective - Exam Physical Examinations : 1-Constitutiona : Cooperative , not in acute distress . 2-HEENT : nech ; supple , no Lymphadenopathy , normal thyroid size . eyes : no ptosis , no icterus, no photophobia . ENT : normal of hearing , normal oropharynx , no Thrush . 3- Respiratory : Chest clear to auscultations Bilaterally , no wheezing , no Rhonchi . 4- Cardiovascular : regular rate and rhythem , S1 , S2 , no S3 , no S4. 5- Gastrointestinal : abdomen soft no tenderness , bowel sounds positive all four quadrents , no organomegally . 6- Genitourinary : Defferred . 7- neurologic : Cranial nerve II to XII intact , no focal neurological deffecit . 8-psychatric : alert , oriented X 3 , appropriate affect , intact judgment and insight . 9-Lymphatic : no Lymphadenopathy . 10- musculoskeltal : cervical spine = motor stregnth in the deltoid and biceps, motor stregnth biceps and the wrist extensors (C6) . motor stregnth in the triceps muscle . deep tendon reflexes normal at the biceps , normal at Brachioradialis , normal at the Triceps positive cervical facet loading test . , Lumber spine = normal moter stegnth lower extremities ,thigh and legs .5/5 deep tendon reflexes : normal Knee Jerk , normal ankle Jerk . lumber facet Loading Test negative bilteally strait leg raising test negative Right , positve at 30 degree Left Fabere test negative Right and positive Left Sever tenderness over the Sacroiliac joint on the Right , and Left side Assessment and Plan Plan: Assessment and plan= chronic low back pain secondary to lumbar degenerative disc disease , lumbar spondylosis with lumbar facet arthropathy , pain improved after the radiofrequency Currently she is complaining of severe hip pain which is mostly secondary to sacroiliitis, Also patient had clinical symptoms of cervical facet arthropathy Medication managements= patient should continue amitriptyline 25 mg daily at bedtime and also patient could benefit from Mobic 7.5 mg twice a day Interventional pain management= consider sacroiliac joint steroid injections bilaterally , and also regarding her neck pain we can consider doing diagnostic medial branch block After we get the results of the diagnostic study/MRI of the cervical spine Refferal = patient will be referred to have MRI of the cervical spine to identify the etiology which most likely has cervical spondylosis with facet arthropathy Follow-up= 4-6 weeks ,
== END | disposition home or self-care (01) ==
LOC: PNWHC3 11:18
PROVIDERS: ATTEND Specialist
DX: G89.29 Other chronic pain (principal); M54.5 Low back pain; M51.36 Other intervertebral disc degeneration, lumbar region; M47.816 Spondylosis without myelopathy or radiculopathy, lumbar region; M46.86 Other specified inflammatory spondylopathies, lumbar region; M46.82 Other specified inflammatory spondylopathies, cervical region; M46.1 Sacroiliitis, not elsewhere classified; M25.552 Pain in left hip; M25.551 Pain in right hip; Z79.1 Long term (current) use of non-steroidal anti-inflammatories (NSAID); Z79.899 Other long term (current) drug therapy
CPT/HCPCS: 99211

== ENCOUNTER → 2017-08-23 | Outpatient (CLI) | payer OTHER ==
--- NOTE | 2017-08-23 08:44 | MR ---
EXAMINATION TYPE: MR cervical spine wo con DATE OF EXAM: 08/23/2017 COMPARISON: 02/09/2011 HISTORY: Spondylosis wo myelopathy or radiculopathy TECHNIQUE: Multiplanar, multisequence images of the cervical spine were acquired. FINDINGS: Bone marrow signal is within normal limits. Cervical spine maintains normal alignment. The visualized posterior fossa is unremarkable. Cervical cord signal is within normal limits. C2-C3: No evidence for degenerative disc disease. No disc bulge/herniation or protrusion. No Canal stenosis. Foramina are patent bilaterally. C3-C4: No evidence for degenerative disc disease. No disc bulge/herniation or protrusion. No Canal stenosis. Foramina are patent bilaterally. C4-C5: There is a small broad-based disc bulge and disc osteophyte complex as well as uncovertebral h ypertrophy creating mild left neural foraminal narrowing and mild spinal canal stenosis. C5-C6: There is a broad-based disc bulge with small disc osteophyte complex without neural foraminal narrowing. There is minimal impression upon the ventral subarachnoid space resulting in minimal spina l canal stenosis. C6-C7: There is a right eccentric broad-based disc bulge and mild uncovertebral hypertrophy. No devika herniation. This minimally narrows the ventral subarachnoid space. C7-T1: No evidence for degenerative disc disease. No disc bulge/herniation or protrusion. No Canal stenosis. Foramina are patent bilaterally. IMPRESSION: 1. No evidence of disc herniation. 2. Mild multilevel degenerative disc disease that create minimal to mild spinal canal stenosis at C4- C7 and mild left neural foraminal narrowing at C4-C5. Degenerative disc disease has developed since t he prior exam.
== END | disposition home or self-care (01) ==
LOC: RADMRIMAIN 07:02
PROVIDERS: ATTEND Specialist
DX: M48.02 Spinal stenosis, cervical region (principal); M99.71 Connective tissue and disc stenosis of intervertebral foramina of cervical region; M50.321 Other cervical disc degeneration at C4-C5 level
CPT/HCPCS: 72141

== ENCOUNTER → 2017-09-05 | Outpatient (CLI) | payer OTHER ==
--- NOTE | 2017-09-05 16:26 | CT ---
EXAMINATION TYPE: CT brain wo con, CT sinus wo con DATE OF EXAM: 09/05/2017 COMPARISON: CT brain April 17, 2013 HISTORY: Patient complains of chronic headache and facial pain x1 month. CT DLP: 795.1 (accession [id number]), 648.5 (accession [id number]) mGycm. Automated Exposure Control for Dose Reduction was Utilized. TECHNIQUE: CT scan of the head and sinuses are performed without contrast. FINDINGS: There is no acute intracranial hemorrhage, mass effect, or midline shift identified. The ventricles and sulci are within normal limits in size. Robison-white matter differentiation is maintain ed. The calvarium is intact. There is mild mucosal thickening in the inferior left maxillary sinus on current study. There is mode rate mucosal thickening with patchy opacification and an air-fluid level in the right maxillary sinus on current study. There is moderate mucosal thickening in the left anterior ethmoid sinus. There is mild to moderate mucosal thickening inferiorly in the left frontal sinus. The ostiomeatal complex on the right is blocked by soft tissue density. IMPRESSION: 1. No acute intracranial hemorrhage, mass effect, or midline shift is seen. 2. New acute on chronic paranasal sinus disease as detailed above.
== END | disposition home or self-care (01) ==
LOC: RADCTMAIN 16:01
PROVIDERS: ATTEND Family Medicine
DX: J01.90 Acute sinusitis, unspecified (principal); H57.9 Unspecified disorder of eye and adnexa
CPT/HCPCS: 70450; 70486

== ENCOUNTER → 2017-10-23 | Outpatient (CLI) | payer OTHER ==
[2017-10-23 12:04] VITALS: BP 122/58; PULSE 63; RESP 18; TEMP 98.3
--- NOTE | 2017-10-23 12:25 | P.PN ---
Subjective Progress Note Date: 10/23/17 Principal diagnosis: Lumbar spondylosis Left sacroiliitis This is a 47-year-old female with history of fibromyalgia and treatment with medical marijuana. The patient had lumbar bilateral medial branch RFA but she still has pain across her lower back more on the left side than the right side. She also has pain in her left hip. She failed to respond to multiple medications including Lyrica and Cymbalta and Mobic. Objective - Vital Signs Vital signs: Vital Signs Temp 98.3 F 10/23/17 11:57 Pulse 63 10/23/17 11:57 Resp 18 10/23/17 11:57 BP 122/58 10/23/17 11:57 Pulse Ox 100 10/23/17 11:57 Intake & Output 10/22/17 10/23/17 10/23/17 18:59 06:59 18:59 Weight 56.699 kg - Constitutional General appearance: Present: average body habitus - EENT Eyes: Present: PERRLA - Respiratory Respiratory: bilateral: CTA - Cardiovascular Rhythm: regular - Neurologic Neurologic: Present: CNII-XII intact - Psychiatric Psychiatric: Present: A&O x's 3, appropriate affect (She has tenderness around the left sacroiliac joint, internal and external rotation of the left hip joint was painful, muscle strength exam in the lower extremities showed decreased hip flexors to 4 out of 5 due to the patient's increasing pain and normal ankle flexion and extension to 5 out of5, and decreased knee flexion and extension to 4 out of 5 bilaterally and symmetrically.), intact judgment & insight Assessment and Plan Plan: A 47-year-old female with history of fibromyalgia, lumbar spondylosis without myelopathy, left sacroiliitis and possible osteoarthritis in the left hip. I will send the patient to have an x-ray done on the left hip I will start her on small dose of Zanaflex 2 mg at night she can advance to 2 times a day if tolerated I will schedule her to have left sacroiliac joint steroid injection under fluoroscopic guidance The patient uses medical marijuana for her pain.
== END | disposition home or self-care (01) ==
LOC: PNWHC3 11:45
PROVIDERS: ATTEND Anesthesiology
DX: M47.816 Spondylosis without myelopathy or radiculopathy, lumbar region (principal); M46.1 Sacroiliitis, not elsewhere classified; M79.7 Fibromyalgia; Z79.899 Other long term (current) drug therapy
CPT/HCPCS: 99211

== ENCOUNTER → 2019-06-27 | Outpatient (CLI) | payer OTHER ==
--- NOTE | 2019-06-27 13:10 | XR ---
EXAMINATION TYPE: XR KUB DATE OF EXAM: 06/27/2019 COMPARISON: NONE HISTORY: Pain TECHNIQUE: Single supine KUB image of the abdomen is obtained FINDINGS: Small bowel demonstrates no evidence for dilatation or air fluid levels. Gas and fecal material is seen in non-distended colon. No convincing evidence for pneumoperitoneum. No unusual calcifications. The lung bases are clear. The osseous structures are intact. IMPRESSION: 1. Overall nonobstructive bowel gas pattern.
--- NOTE | 2019-06-27 13:11 | XR ---
EXAMINATION TYPE: XR lumbar spine 2 or 3V DATE OF EXAM: 06/27/2019 CLINICAL HISTORY: pain TECHNIQUE: Three views of the lumbar spine are submitted. COMPARISON: None. FINDINGS: There are 5 lumbar type vertebral bodies identified. The lumbar spine shows satisfactory alignment w ithout evidence of acute fracture or dislocation. Vertebral body heights are within normal limits. Mild scattered degenerative disc disease. Scattered ventral spondylosis. The overlying soft tissue a ppears unremarkable. IMPRESSION: No acute fracture or dislocation is seen in the lumbar spine. ICD 10 NO FRACTURE, INITIAL EVALUATION
--- NOTE | 2019-06-27 13:14 | XR ---
EXAMINATION TYPE: XR Hip Bilateral Complete DATE OF EXAM: 06/27/2019 CLINICAL HISTORY: pain TECHNIQUE: AP and frogleg views of the bilateral hips are obtained. COMPARISON: None. FINDINGS: There is no acute fracture/dislocation evident. The joint space appears within normal li mits. The overlying soft tissue appears unremarkable. IMPRESSION: 1. There is no acute fracture or dislocation. ICD 10 NO FRACTURE, INITIAL EVALUATION
== END | disposition home or self-care (01) ==
LOC: RADXRMAIN 12:38
PROVIDERS: ATTEND Family Medicine
DX: M54.5 Low back pain (principal); M25.552 Pain in left hip; M25.551 Pain in right hip; R10.9 Unspecified abdominal pain; Z91.81 History of falling
CPT/HCPCS: 72100; 73521; 74018

== ENCOUNTER → 2019-07-11 | Outpatient (CLI) | payer OTHER ==
--- NOTE | 2019-07-11 09:52 | CT ---
EXAMINATION TYPE: CT abdomen pelvis w con DATE OF EXAM: 07/11/2019 HISTORY: Intermittent abdominal pain, history of celiac disease CT DLP: 432.20mGycm Automated Exposure Control for Dose Reduction was Utilized. CONTRAST: CT scan of the abdomen and pelvis is performed with IV Contrast, patient injected with 100 ml mL of I sovue 300. COMPARISON: CT abdomen and pelvis October 30, 2014 FINDINGS: LUNG BASES: Some mild basilar emphysematous change. LIVER/GB: No significant abnormality is appreciated. PANCREAS: No significant abnormality is seen. SPLEEN: No significant abnormality is seen. ADRENALS: No significant abnormality is seen. KIDNEYS: No significant abnormality is seen. BOWEL: Oral contrast reaches level of the proximal to mid sigmoid colon. There is no suspicious small or large bowel dilatation. Terminal ileum appears within normal limits coronal image 40. Normal cont rast-filled appendix coronal image 50 posteriorly from cecum. There is 7 mm linear density in the rig ht aspect of the rectum coronal image 65 and axial image 69 suspicious for foreign body. Correlate cl inically. Mild wall thickening left lower quadrant at junction of sigmoid and left colon. UTERUS/ADNEXA: No gross abnormality seen. LYMPH NODES: No greater than 1cm abdominal or pelvic lymph nodes are appreciated. OSSEOUS STRUCTURES: Some facet arthropathy in the lower lumbar spine. Asymmetric moderate narrowing a nd spurring with endplate sclerosis level L2-L3 level. OTHER: Mild to moderate calcified plaque of the aorta extends into branch vessels. IMPRESSION: Cannot exclude 7 mm linear foreign body superior rectum right aspect. Correlate clinicall y. Consider repeat CT in a few days as cannot determine if this is intraluminal or possibly embedded in the mucosa. Possible mild distal colitis, correlate clinically. No bowel obstruction.
== END | disposition home or self-care (01) ==
LOC: RADCTMAIN 06:17
PROVIDERS: ATTEND Family Medicine
DX: K90.0 Celiac disease (principal)
CPT/HCPCS: 74177; Q9967

== ENCOUNTER → 2019-07-21 | Outpatient (CLI) | payer OTHER ==
--- NOTE | 2019-07-21 08:54 | CT ---
EXAMINATION TYPE: CT pelvis wo con DATE OF EXAM: 07/21/2019 COMPARISON: 07/11/2019 HISTORY: Abnormal findings on prior study, rule out rectal foreign body CT DLP: 362 mGycm Automated exposure control for dose reduction was used. Unenhanced CT of the pelvis was performed. FINDINGS: Previously noted possible linear foreign body is not reproduced at this time. No foreign bodies are s een. No pelvic mass. No evidence for free fluid. Osseous structures are intact. Hysterectomy changes noted. The lungs gastrointestinal tract is of normal caliber. IMPRESSION: NO DISTINCT ABNORMALITY IS APPRECIATED. MORE SPECIFICALLY I DO NOT SEE EVIDENCE FOR FOREIGN BODY
== END | disposition home or self-care (01) ==
LOC: RADCTMAIN 08:13
PROVIDERS: ATTEND Family Medicine
DX: R93.5 Abnormal findings on diagnostic imaging of other abdominal regions, including retroperitoneum (principal); T18.5XXS Foreign body in anus and rectum, sequela
CPT/HCPCS: 72192

== ENCOUNTER → 2019-08-26 | Outpatient (CLI) | payer OTHER ==
--- NOTE | 2019-08-26 12:12 | XR ---
EXAMINATION TYPE: XR chest 2V DATE OF EXAM: 08/26/2019 COMPARISON: Chest x-ray September 18, 2014 HISTORY: Nasal congestion, cough, and chills. TECHNIQUE: Frontal and lateral views of the chest are obtained. FINDINGS: There is no focal air space opacity, pleural effusion, or pneumothorax seen. The cardiac silhouette size is within normal limits. The osseous structures are intact. IMPRESSION: No suspicious acute pulmonary process. No significant change from prior.
== END | disposition home or self-care (01) ==
LOC: RADXRMAIN 11:39
PROVIDERS: ATTEND Family Medicine
DX: R05 Cough (principal); R68.83 Chills (without fever); R90.81 Abnormal echoencephalogram
CPT/HCPCS: 71046; 87502

== ENCOUNTER → 2019-09-01 | Outpatient (CLI) | payer OTHER | END | disposition home or self-care (01) | LOC: LABWHC1 13:36 | PROVIDERS: ATTEND Surgery | DX: Z52.4 Kidney donor (principal) | CPT/HCPCS: 86900; 86901 ==

== ENCOUNTER 2019-09-12 09:53 | Day surgery (SDC) | payer OTHER ==
[2019-09-10 15:16] VITALS: BMI 24.7
[~2019-09-12 09:53] MED LIST changes: +DEXAMETHASONE SOD PHOSPHATE 10 MG/ML 1 ML VIAL IV ONE; +LIDOCAINE 1% 20 ML VIAL (10MG/ML) FOR IV START INTRADERMA PRN; +ONDANSETRON 4 MG/2 ML VIAL IVP ONE; +SCOPOLAMINE 1.5MG/72HR PATCH TRANSDERM ONE
[2019-09-12 10:46] VITALS: TEMP 97.1
[2019-09-12] MEDS ORDERED: PROPOFOL 10 MG/ML 20 ML VIAL IV ONE (11:29)
[2019-09-12] MEDS ORDERED: LIDOCAINE 1% INJ 10MG/ML (20 ML MDV) ONE (11:29)
--- NOTE | 2019-09-12 11:53 | P.PCN ---
Date of Procedure: 09/12/19 Procedure(s) Performed: Brief history: Patient is a pleasant 49-year-old white female scheduled for an elective upper endoscopy as well as colonoscopy as a part of evaluation of evaluation of chronic diarrhea alternating with constipation and history of celiac disease diagnosed 3 years ago Procedure performed: Esophagogastroduodenoscopy with biopsy Colonoscopy with biopsy Preoperative diagnosis: History of celiac disease Chronic diarrhea Anesthesia: MAC Procedure: After informed consent was obtained from the patient was brought into the endoscopy unit and IV sedation was administered by anesthesia under continuous monitoring. Initially upper endoscopy was done. The Olympus GF 160 video endos cope was inserted inserted into the mouth and esophagus intubated without any difficulty and was gradually advanced into the stomach and duodenum and carefully examined. The bulb and second part of the duodenum appeared normal. Biopsies were done from the to evaluate for celiac disease. The scope was then withdrawn into the stomach adequately insufflated with air and upon careful examination the antrum and body, cardia and fundus appeared normal. The scope was then withdrawn into the esophagus. The GE junction was located at 40 cm to the incisors. It appeared regular with no erythema erosions or ulcerations. Rest of the esophagus appeared normal. Patient tolerated the procedure well. At this time the patient continued to remain sedation. Initial digital rectal examination was normal. Olympus CF 160 video colonoscope was then inserted into the rectum and gradually advanced to the cecum without any difficulty. Careful examination was performed as the scope was gradually being withdrawn. The prep was excellent. The cecum, ascending colon, transverse colon, descending colon, sigmoid colon and rectum appeared normal. Random biopsies were done from ascending and descending colon to rule out metastatic/collagenous colitis Retroflexion was performed in the rectum and no lesions were noted. Patient tolerated the procedure well. Impression: 1. Upper Endoscopy was essentially within normal limits with no evidence of gastritis or esophagitis, state as was duodenal biopsies to evaluate for celiac 2. Colonoscopy was essentially within normal limits with no evidence of colitis or colorectal neoplasia Recommendations: Findings of this examination were discussed with the patient as well as her family. She was advised to follow with the biopsy results. She can have a repeat screening colonoscopy in 10 years
[2019-09-12 11:57] VITALS: RESP 17
[2019-09-12 12:06] VITALS: BP 148/80; PULSE 80
== END 2019-09-12 12:43 | disposition home or self-care (01) ==
LOC: ORWHC2ENDO 09:53
PROVIDERS: ATTEND Internal Medicine Gastroenterology
DX: K52.9 Noninfective gastroenteritis and colitis, unspecified (principal); K90.0 Celiac disease; J44.9 Chronic obstructive pulmonary disease, unspecified; F17.200 Nicotine dependence, unspecified, uncomplicated; M79.7 Fibromyalgia; K21.9 Gastro-esophageal reflux disease without esophagitis; M19.90 Unspecified osteoarthritis, unspecified site; Z79.899 Other long term (current) drug therapy; Z88.1 Allergy status to other antibiotic agents; Z97.2 Presence of dental prosthetic device (complete) (partial)
CPT/HCPCS: 88305; 45380; 43239; J2001; J2704

== ENCOUNTER 2020-02-16 08:38 | Emergency (ER) | payer OTHER ==
[2020-02-16] MEDS ORDERED: LIDOCAINE 1% INJ 10MG/ML (20 ML MDV) SQ ONE (08:57)
--- NOTE | 2020-02-16 09:14 | ED ---
General Adult HPI - General Chief complaint: Skin/Abscess/Foreign Body Stated complaint: insect bite Time Seen by Provider: 02/16/20 08:48 Source: patient, RN notes reviewed Mode of arrival: ambulatory Limitations: no limitations - History of Present Illness Initial comments: Patient is a pleasant 49-year-old female presenting to the emergency department with concerns for left upper thigh infection. Onset was 2-3 days ago. Patient states it started as a small pimple and she tried to pop it however seems to keep getting larger. Patient did notice some redness around it today. No history of similar symptoms previously. No fevers. Patient is unclear if she could've sustained a bug bite. - Related Data Home Medications Medication Instructions Recorded Confirmed Omeprazole 20 mg PO DAILY 11/15/16 09/12/19 Previous Rx's Medication Instructions Recorded Sulfamethox-Tmp 800-160Mg [Bactrim 2 each PO Q12HR #40 tab 02/16/20 DS 800-160 mg] Allergies Allergy/AdvReac Type Severity Reaction Status Date / Time cephalexin [From Keflex] Allergy Abdominal Verified 02/16/20 08:44 Pain,UTI gluten Allergy Abdominal Verified 02/16/20 08:44 Pain Review of Systems ROS Statement: Those systems with pertinent positive or pertinent negative responses have been documented in the HPI. ROS Other: All systems not noted in ROS Statement are negative. Constitutional: Denies: fever, chills Past Medical History Past Medical History: COPD, Fibromyalgia, GERD/Reflux, Osteoarthritis (OA) Additional Past Medical History / Comment(s): Celiac disease , back pain, ALPHA ONE LUNG DISEASE History of Any Multi-Drug Resistant Organisms: None Reported Past Surgical History: Hysterectomy, Tubal Ligation Additional Past Surgical History / Comment(s): PAIN PROC. Polyps removed from vocal cords. Past Anesthesia/Blood Transfusion Reactions: No Reported Reaction Past Psychological History: Bipolar, Depression Smoking Status: Former smoker Past Alcohol Use History: None Reported Past Drug Use History: Marijuana - Past Family History Mother Family Medical History: Deep Vein Thrombosis (DVT) Father Family Medical History: Cancer Sister(s) Family Medical History: Deep Vein Thrombosis (DVT) General Exam Limitations: no limitations General appearance: alert, in no apparent distress Head exam: Present: normocephalic Respiratory exam: Present: normal lung sounds bilaterally Cardiovascular Exam: Present: regular rate, normal rhythm Extremities exam: Present: other (Left upper thigh with cellulitic area approximately 4 x 12 cm. Central area of fluctuation approximately 2 x 2 centimeter.) Neurological exam: Present: alert Psychiatric exam: Present: normal affect, normal mood Skin exam: Present: erythema Course Vital Signs 02/16/20 08:39 Temperature 97.8 F Pulse Rate 78 Respiratory 18 Rate Blood Pressure 118/78 O2 Sat by Pulse 99 Oximetry Procedures - Incision & Drainage Consent Obtained: verbal consent Indication: Abscess Site: lower extremity (Left anterior upper thigh) Size (cm): 2 Anesthetic Used: lidocaine 1% Amount (mLs): 3 I&D Cleaning Method: Betadine Scalpel Used: #11 I&D Drainage Obtained: Pus (Only a small amount of pus), Blood Patient Tolerated Procedure: well, no complications Disposition Clinical Impression: Cellulitis of left thigh, Abscess of left thigh Disposition: HOME SELF-CARE Condition: Stable Instructions (If sedation given, give patient instructions): Abscess (ED) Additional Instructions: Please follow-up with primary care physician in the next 48 hours for recheck. Return for increased redness, swelling, fevers, pain, worsening symptoms or any other concerns. Prescription sent to your pharmacy. Prescriptions: Sulfamethox-Tmp 800-160Mg [Bactrim DS 800-160 mg] 2 each PO Q12HR #40 tab Is patient prescribed a controlled substance at d/c from ED?: No Referrals: Batsheva Oliveira MD [Primary Care Provider] - 1-2 days Time of Disposition: 09:13
[2020-02-16 09:28] VITALS: BP 98/79; PULSE 65; RESP 16; TEMP 98
== END 2020-02-16 09:28 | disposition home or self-care (01) ==
LOC: EC 08:38
DX: L03.116 Cellulitis of left lower limb (principal); L02.416 Cutaneous abscess of left lower limb; K21.9 Gastro-esophageal reflux disease without esophagitis; Z79.899 Other long term (current) drug therapy; Z88.1 Allergy status to other antibiotic agents; Z91.018 Allergy to other foods; Z87.891 Personal history of nicotine dependence
CPT/HCPCS: 10060; 99281; J2001

== ENCOUNTER → 2020-05-18 | Outpatient (CLI) | payer OTHER ==
--- NOTE | 2020-05-18 10:03 | XR ---
EXAMINATION TYPE: XR chest 2V DATE OF EXAM: 05/18/2020 COMPARISON: 08/26/2019 HISTORY: Chest pain TECHNIQUE: Frontal and lateral views of the chest are obtained. FINDINGS: There is no focal air space opacity. No evidence for pneumothorax. No pleural effusion. The cardiac silhouette size is within normal limits. The osseous structures are grossly intact. IMPRESSION: 1. No acute cardiopulmonary process.
[2020-05-18 10:55] LABS: Basophils # (A) 0.1 k/uL (0-0.2); Basophils % (A) 1 %; Eosinophils # (A) 0.3 k/uL (0-0.7); Eosinophils % (A) 6 %; HCT 43.5 % (34.0-46.0); HGB 14.9 gm/dL (11.4-16.0); Lymphocytes # (A) 1.1 k/uL (1.0-4.8); Lymphocytes % (A) 23 %; MCH 34.7 pg (25.0-35.0); MCHC 34.3 g/dL (31.0-37.0); MCV 101.2 fL (80.0-100.0); Mean Platelet Volume 6.4; Monocytes # (A) 0.2 k/uL (0-1.0); Monocytes % (A) 4 %; Neutrophils # (A) 3.3 k/uL (1.3-7.7); Neutrophils % (A) 65 %; Platelet Count 190 k/uL (150-450); RDW 11.7 % (11.5-15.5)
[2020-05-18 10:57] LABS: Appearance,Urine Clear (Clear); Bilirubin,Urine Negative (Negative); Blood,Urine Negative (Negative); Color,Urine Light Yellow; Glucose,Urine (UA) Negative (Negative); Ketones,Urine Negative (Negative); Leukocyte Esterase,Urine Negative (Negative); Nitrite,Urine Negative (Negative); PH, Urine 7.5 (5.0-8.0); Protein,Urine Negative (Negative); Specific Gravity,Urine 1.006 (1.001-1.035); Urobilinogen,Urine <2.0 mg/dL (<2.0)
[2020-05-18 14:12] LABS: INR 0.96 (0.90-1.11); Prothrombin Time 10.3 sec (9.9-11.9)
[2020-05-18 16:00] LABS: HIV 2 AB Non-Reactive (Non-Reactive); HIV AB P24 Non-Reactive (Non-Reactive); HIV P24 AG Non-Reactive (Non-Reactive)
[2020-05-18 16:58] LABS: EBV-EA (IgG) 0.2 AI; EBV-EBNA(IgG) >8.0 AI; EBV-VCA (IgG) >8.0 AI; EBV-VCA (IgM) 0.8 AI
[2020-05-18 18:48] LABS: Hemoglobin A1C 4.9 % (4.0-6.0)
[2020-05-18 19:49] LABS: ALT 12 U/L (8-44); AST 19 U/L (13-35); Albumin/Globulin Ratio 2.26 (1.60-3.17); Alkaline Phosphatase 92 U/L (41-126); BUN/Creat Ratio 11.67 Ratio (12.00-20.00); Bilirubin, Conjugated <0.20 mg/dL (0.20-0.40); Calcium 9.5 mg/dL (8.7-10.3); Carbon Dioxide 29.8 mmol/L (21.6-31.8); Chloride 110 mmol/L (96-109); Chol/HDL Ratio 4.15; Cholesterol 216 mg/dL (0-200); GGT <15 U/L (0-38); Globulin 1.9 g/dL (1.6-3.3); Glucose 87 mg/dL (70-110); LDH 141 U/L (120-246); LDL Cholesterol,Calculated 136.8 mg/dL (0.0-131.0); Phosphorus 3.8 mg/dL (2.4-5.1); Potassium 4.2 mmol/L (3.5-5.5); Sodium 143 mmol/L (135-145); Total Bilirubin 0.5 mg/dL (0.2-1.2); Total Protein 6.2 g/dL (6.2-8.2)
[2020-05-18 22:07] LABS: Microalbumin Creatinine Ratio <30 mg/g Creat (0-30); Urine Creatinine 43.7 mg/dL
[2020-05-18 22:27] LABS: Creatinine,Urine Random 45.7 mg/dL
[2020-05-18 22:38] LABS: Total Protein,Urine Random 4.2 mg/dL (0.0-13.5)
[2020-05-18 23:03] LABS: Creatinine 24 Hour,Urine 888.3 mg/24hr (800.0-1800.0)
[2020-05-19 01:46] LABS: Total Volume 24 Hour,Urine 2700 mL
[2020-05-19 15:51] LABS: Hepatitis B Core IgM Non-Reactive (Non-Reactive); Hepatitis B Surface AB- Quant 3.5 mIU/mL; Hepatitis B Surface Antibody Non-Reactive (Non-Reactive); Hepatitis B Surface Antigen Non-Reactive (Non-Reactive); Hepatitis C IgG Antibody Non-Reactive (Non-Reactive)
[2020-05-24 16:29] LABS: West Nile Virus IgM Antibody 0.09 INDEX (<0.90)
== END | disposition home or self-care (01) ==
LOC: LABWHC1 08:43
PROVIDERS: ATTEND Surgery
DX: Z00.5 Encounter for examination of potential donor of organ and tissue (principal); Z13.6 Encounter for screening for cardiovascular disorders
CPT/HCPCS: 36415; 71046; 80053; 80061; 81003; 81050; 82043; 82248; 82570; 82575; 82977; 83036; 83615; 84100; 84156; 85025; 85610; 85730; 86480; 86644; 86663; 86664; 86665; 86704; 86705; 86706; 86780; 86788; 86789; 86803; 87086; 87340; 87390; 87522; 93005

== ENCOUNTER → 2020-10-20 | Outpatient (CLI) | payer OTHER ==
--- NOTE | 2020-10-20 15:26 | CT ---
EXAMINATION TYPE: CT abdomen pelvis wo/w con DATE OF EXAM: 10/20/2020 HISTORY: hematuria CT DLP: 519.1mGycm Automated Exposure Control for Dose Reduction was Utilized. CONTRAST: CT scan of the abdomen and pelvis is performed without oral and without and with IV Contrast, patient injected with 100 mL of Isovue 300. COMPARISON: CT abdomen and pelvis July 11, 2019 FINDINGS: LUNG BASES: Background mild to moderate emphysematous change in the lung bases redemonstrated. New mi [id number] left basilar linear scarring and/or atelectasis LIVER/GB: No significant abnormality is appreciated. PANCREAS: No significant abnormality is seen. SPLEEN: No significant abnormality is seen. ADRENALS: No significant abnormality is seen. KIDNEYS: Noncontrast images show no renal calculi bilaterally. Postcontrast images show symmetric cor tical medullary uptake and excretion without concerning solid or cystic renal mass or hydronephrosis seen bilaterally. Urinary bladder appears within normal limits without intraluminal calculus or mass. Visualized portion of both ureters is unremarkable. BOWEL: Suboptimal evaluation bowel without enteric contrast and patient having little intra-abdominal fat. No suspicious small or large bowel dilatation is seen. Appendix unremarkable below liver margin axial image 28 series 5. UTERUS/ADNEXA: Uterus surgically absent or markedly atrophic. A few scattered tiny bilateral pelvic p hleboliths noted. LYMPH NODES: No greater than 1cm abdominal or pelvic lymph nodes are appreciated. OSSEOUS STRUCTURES: Moderate disc space narrowing and endplate sclerosis at the anterior L2-L3 level. Slight grade 1 retrolisthesis L2 on L3 OTHER: Mild to moderate calcified plaque of the aorta extends into branch vessels IMPRESSION: Source of hematuria not identified. No suspicious new or acute findings.
== END ==
LOC: RADCTMAIN 14:01
PROVIDERS: ATTEND Urology
DX: R31.9 Hematuria, unspecified (principal)
CPT/HCPCS: 74178; Q9967

== ENCOUNTER 2021-04-02 12:27 | Emergency (ER) | payer OTHER ==
[2021-04-02 12:33] VITALS: BP 128/87; PULSE 76; RESP 17; TEMP 98.3
[2021-04-02] MEDS ORDERED: ACETAMINOPHEN TAB 500 MG TAB PO STA (12:48)
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
== END 2021-04-02 14:21 | disposition home or self-care (01) ==
LOC: EC 12:27
DX: S16.1XXA Strain of muscle, fascia and tendon at neck level, initial encounter (principal); R51.9 Headache, unspecified; J44.9 Chronic obstructive pulmonary disease, unspecified; K21.9 Gastro-esophageal reflux disease without esophagitis; M19.90 Unspecified osteoarthritis, unspecified site; Z79.899 Other long term (current) drug therapy; Z88.1 Allergy status to other antibiotic agents; Z91.018 Allergy to other foods; V49.9XXA Car occupant (driver) (passenger) injured in unspecified traffic accident, initial encounter
CPT/HCPCS: 70450; 72125; 99284

== ENCOUNTER → 2021-06-03 | Outpatient (CLI) | payer OTHER ==
--- NOTE | 2021-06-03 10:18 | XR ---
EXAMINATION TYPE: XR ribs LT w pa chest xray DATE OF EXAM: 06/03/2021 COMPARISON: 05/18/2020 HISTORY: Left-sided rib pain below breast TECHNIQUE: AP chest and two-view left RIBS FINDINGS: The heart size is normal. The pulmonary vasculature is normal. The lungs are clear. No pneu mothorax is evident. Left ribs appear intact. No displaced fractures are evident. Follow-up can be performed as clinically indicated. IMPRESSION: 1. Normal left ribs. 2. Normal chest
== END | disposition home or self-care (01) ==
LOC: RADXRMAIN 09:48
PROVIDERS: ATTEND Family Medicine
DX: R07.81 Pleurodynia (principal); J44.9 Chronic obstructive pulmonary disease, unspecified

== ENCOUNTER 2021-06-15 12:24 | Emergency (ER) | payer OTHER ==
--- NOTE | 2021-06-15 14:17 | ED ---
ENT HPI - General Chief complaint: ENT Stated complaint: sorethroat Time Seen by Provider: 06/15/21 12:56 Source: patient, RN notes reviewed Mode of arrival: ambulatory Limitations: no limitations - History of Present Illness Initial comments: Patient is a 50-year-old female that presents to emergency department complaining of a irritated throat for the past 2 days. She notes that she recently got new dentures was eating chips is still learning how to eat when the chip got stuck in the back of her throat and cause irritation. She thought nothing of it until today when she noted that her throat was progressively more sore. She denied any other issues or complaints. She is otherwise well- appearing. She was concerned for possible strep throat. She denied chest pain shortness of breath headache nausea vomiting diarrhea constipation fever fatigue chills. - Related Data Home Medications Medication Instructions Recorded Confirmed Omeprazole 20 mg PO DAILY 11/15/16 04/02/21 Ibuprofen [Motrin] 800 mg PO Q8H PRN 04/02/21 04/02/21 buPROPion HCL [Wellbutrin SR] 150 mg PO DAILY 04/02/21 04/02/21 Allergies Allergy/AdvReac Type Severity Reaction Status Date / Time cephalexin [From Keflex] Allergy Abdominal Verified 06/15/21 12:34 Pain,UTI gluten Allergy Abdominal Verified 06/15/21 12:34 Pain Review of Systems ROS Statement: Those systems with pertinent positive or pertinent negative responses have been documented in the HPI. ROS Other: All systems not noted in ROS Statement are negative. Past Medical History Past Medical History: COPD, Fibromyalgia, GERD/Reflux, Osteoarthritis (OA) Additional Past Medical History / Comment(s): Celiac disease , back pain, ALPHA ONE LUNG DISEASE History of Any Multi-Drug Resistant Organisms: None Reported Past Surgical History: Hysterectomy, Tubal Ligation Additional Past Surgical History / Comment(s): PAIN PROC. Polyps removed from vocal cords. Past Anesthesia/Blood Transfusion Reactions: No Reported Reaction Past Psychological History: Bipolar, Depression Smoking Status: Current every day smoker Past Alcohol Use History: Occasional Past Drug Use History: Marijuana - Past Family History Mother Family Medical History: Deep Vein Thrombosis (DVT) Father Family Medical History: Cancer Sister(s) Family Medical History: Deep Vein Thrombosis (DVT) General Exam Limitations: no limitations General appearance: alert, in no apparent distress Head exam: Present: atraumatic, normocephalic, normal inspection Eye exam: Present: normal appearance, PERRL, EOMI. Absent: scleral icterus, conjunctival injection, periorbital swelling ENT exam: Present: normal exam, mucous membranes moist, other (Pharynx mildly erythematous, no exudate no swelling.) Neck exam: Present: normal inspection. Absent: tenderness, lymphadenopathy Respiratory exam: Present: normal lung sounds bilaterally. Absent: respiratory distress, wheezes, rales, rhonchi, stridor Cardiovascular Exam: Present: regular rate, normal rhythm, normal heart sounds. Absent: systolic murmur, diastolic murmur, rubs, gallop, clicks GI/Abdominal exam: Present: soft, normal bowel sounds. Absent: distended, tenderness, guarding, rebound, rigid Extremities exam: Present: normal inspection, full ROM, normal capillary refill. Absent: tenderness, pedal edema, joint swelling, calf tenderness Neurological exam: Present: alert, oriented X3 Psychiatric exam: Present: normal affect, normal mood Skin exam: Present: warm, dry, intact, normal color. Absent: rash Course Vital Signs 06/15/21 12:32 Temperature 97 F L Pulse Rate 76 Respiratory 18 Rate Blood Pressure 126/72 O2 Sat by Pulse 100 Oximetry Medical Decision Making - Medical Decision Making 50-year-old female complaining of a sore throat for the past 2 days. Covid test, strep test ordered. both test negative. Patient most likely has pharyngitis caused by another virus. Case discussed with Dr. Perez, patient discharge home with follow-up to primary care. - Lab Data Lab Results 06/15/21 06/15/21 Range/Units 13:19 13:19 Coronavirus (PCR) Not Detected (Not Detectd) Group A Strep Rapid Negative (Negative) Disposition Clinical Impression: Acute viral pharyngitis Disposition: HOME SELF-CARE Condition: Stable Instructions (If sedation given, give patient instructions): Pharyngitis (ED) Additional Instructions: Please return to the Emergency Department if symptoms worsen or any other concerns. Follow-up with primary care 1-2 days. Take Tylenol Motrin every 3 hours alternating as needed for aches pains or fevers. Is patient prescribed a controlled substance at d/c from ED?: No Referrals: Batsheva Oliveira MD [Primary Care Provider] - 1-2 days Time of Disposition: 14:17
[2021-06-15] MEDS ORDERED: methylPREDNISolone SOD SUCCI 125 MG/2 ML VIAL IM ONE (14:21)
[2021-06-15 14:56] VITALS: BP 128/70; PULSE 85; RESP 16; TEMP 97.8
== END 2021-06-15 14:42 | disposition home or self-care (01) ==
LOC: EC 12:24
DX: J02.9 Acute pharyngitis, unspecified (principal); J44.9 Chronic obstructive pulmonary disease, unspecified; K21.9 Gastro-esophageal reflux disease without esophagitis; F17.200 Nicotine dependence, unspecified, uncomplicated; Z79.899 Other long term (current) drug therapy; Z88.1 Allergy status to other antibiotic agents; Z91.018 Allergy to other foods; Z20.822 Contact with and (suspected) exposure to COVID-19
CPT/HCPCS: 87081; 87430; 87635; 99283; 96372; J2930

== ENCOUNTER → 2021-07-01 | Outpatient (CLI) | payer OTHER ==
--- NOTE | 2021-07-02 17:34 | CT ---
EXAMINATION TYPE: CT chest wo con DATE OF EXAM: 07/01/2021 COMPARISON: Chest and left rib x-rays June 03, 2021 HISTORY: Chest wall pain under LT breast. CT DLP: 145.60 mGycm. Automated Exposure Control for Dose Reduction was Utilized. TECHNIQUE: CT scan of the thorax is performed without IV contrast. FINDINGS: LUNGS: Moderate underlying emphysematous change greatest in the upper lungs. No suspicious focal cons olidation or groundglass opacity. Subpleural 5 mm nodule right lower lobe axial image 34. No pleural effusion or pneumothorax seen bilaterally. Tracheobronchial tree patent. MEDIASTINUM: Lack of IV contrast is noted to limit evaluation for mediastinal and especially hilar ad enopathy. There are no definitive greater than 1 cm hilar or mediastinal lymph nodes. No cardiomega ly or pericardial effusion is seen. OTHER: Slight scoliotic curvature of the midthoracic spine. [id number] multilevel anterior spur ring. Seen better on CT versus x-ray there is subacute or healing fracture of the anterior left fifth rib axial image 31 IMPRESSION: Moderate emphysematous change without acute pulmonary process. Subacute or healing nondis placed anterior left fifth rib fracture identified likely common for patient's clinical symptoms less well seen on x-ray versus CT.
== END | disposition home or self-care (01) ==
LOC: RADCTMAIN 18:21
PROVIDERS: ATTEND Family Medicine
DX: J43.8 Other emphysema (principal)
CPT/HCPCS: 71250

== ENCOUNTER → 2021-07-13 | Outpatient (CLI) | payer OTHER ==
--- NOTE | 2021-07-13 15:33 | US ---
EXAMINATION TYPE: US thyroid st tissue head/neck DATE OF EXAM: 07/13/2021 COMPARISON: NONE CLINICAL HISTORY: R13.14 PHARYNGOESOPHAGEAL DYSPHAGIA. h/o polyp removal from vocal cords and since s he has had a sensation of something in her throat when swallowing. No abn labs, not on thyroid meds GLAND SIZE: Right Lobe: 4.8 x 1.0 x 1.4 cm Overall Parenchyma: homogenous Left Lobe: 4.0 x 0.8 x 1.3 cm Overall Parenchyma: homogeneous Isthmus Thickness: 0.3 cm NODULES RIGHT: # of nodules measured on right: 0 LEFT: # of nodules measured on left: 0 ISTHMUS: # of nodules measured in the isthmus: 0 Bilateral neck scanned, no evidence of lymphadenopathy. IMPRESSION: Normal thyroid scan
== END | disposition home or self-care (01) ==
LOC: RADUSWWP 14:54
PROVIDERS: ATTEND Family Medicine
DX: R13.14 Dysphagia, pharyngoesophageal phase (principal)
CPT/HCPCS: 76536

== ENCOUNTER 2021-12-14 12:37 | Emergency (ER) | payer OTHER ==
[2021-12-14 12:45] VITALS: RESP 16
--- NOTE | 2021-12-14 12:56 | ED ---
General Adult HPI - General Chief complaint: Upper Respiratory Infection Stated complaint: Covid+/wants infusion Time Seen by Provider: 12/14/21 12:45 Source: patient, RN notes reviewed, old records reviewed Mode of arrival: ambulatory Limitations: no limitations - History of Present Illness Initial comments: This is a 51-year-old female with past medical history significant for COPD. Patient is a smoker. Patient comes in complaining that she has had a upper respiratory congestion and a little bit of fatigue. Patient states she started symptoms on the seventh. Patient states symptoms have worsened a little she went and got tested at the health department today and they told her she had COVID. Patient denies any shortness of breath patient denies any chest pain. Patient denies any palpitation. Patient denies any swelling to the legs or calf pain. Patient denies any nausea vomiting diarrhea. - Related Data Home Medications Medication Instructions Recorded Confirmed Omeprazole 20 mg PO DAILY 11/15/16 04/02/21 Ibuprofen [Motrin] 800 mg PO Q8H PRN 04/02/21 04/02/21 buPROPion HCL [Wellbutrin SR] 150 mg PO DAILY 04/02/21 04/02/21 Allergies Allergy/AdvReac Type Severity Reaction Status Date / Time cephalexin [From Keflex] Allergy Abdominal Verified 12/14/21 12:43 Pain,UTI gluten Allergy Abdominal Verified 12/14/21 12:43 Pain Review of Systems ROS Statement: Those systems with pertinent positive or pertinent negative responses have been documented in the HPI. ROS Other: All systems not noted in ROS Statement are negative. Past Medical History Past Medical History: COPD, Fibromyalgia, GERD/Reflux, Osteoarthritis (OA) Additional Past Medical History / Comment(s): Celiac disease , back pain, ALPHA ONE LUNG DISEASE History of Any Multi-Drug Resistant Organisms: None Reported Past Surgical History: Hysterectomy, Tubal Ligation Additional Past Surgical History / Comment(s): PAIN PROC. Polyps removed from vocal cords. Past Anesthesia/Blood Transfusion Reactions: No Reported Reaction Past Psychological History: Bipolar, Depression Smoking Status: Former smoker Past Alcohol Use History: Occasional Past Drug Use History: Marijuana - Past Family History Mother Family Medical History: Deep Vein Thrombosis (DVT) Father Family Medical History: Cancer Sister(s) Family Medical History: Deep Vein Thrombosis (DVT) General Exam - General Exam Comments Initial Comments: GENERAL: Patient is well-developed and well-nourished. Patient is nontoxic and well- hydrated and is in no acute distress. ENT: Neck is soft and supple. No significant lymphadenopathy is noted. Oropharynx is clear. Moist mucous membranes. Neck has full range of motion without eliciting any pain. EYES: The sclera were anicteric and conjunctiva were pink and moist. Extraocular movements were intact and pupils were equal round and reactive to light. Eyelids were unremarkable. PULMONARY: Unlabored respirations. Good breath sounds bilaterally. No audible rales rhonchi or wheezing was noted. CARDIOVASCULAR: There is a regular rate and rhythm without any murmurs gallops or rubs. ABDOMEN: Soft and nontender with normal bowel sounds. SKIN: Skin is clear with no lesions or rashes and otherwise unremarkable. NEUROLOGIC: Patient is alert and oriented x3. Cranial nerves II through XII are grossly intact. Motor and sensory are also intact. Normal speech, volume and content. Symmetrical smile. MUSCULOSKELETAL: Normal extremities with adequate strength and full range of motion. No lower extremity swelling or edema. No calf tenderness. LYMPHATICS: No significant lymphadenopathy is noted PSYCHIATRIC: Normal psychiatric evaluation. Limitations: no limitations Course Vital Signs 12/14/21 12:43 Temperature 97.6 F Pulse Rate 74 Respiratory 16 Rate Blood Pressure 147/90 O2 Sat by Pulse 96 Oximetry Medical Decision Making - Medical Decision Making Patient will receive monoclonal antibodies. Patient brought with her a report from the health department that the patient has COVID. Disposition Clinical Impression: COVID-19 Disposition: HOME SELF-CARE Condition: Good Instructions (If sedation given, give patient instructions): COVID-19 (Coronavirus Disease 2019) (ED) Is patient prescribed a controlled substance at d/c from ED?: No Referrals: Batsheva Oliveira MD [Primary Care Provider] - 1-2 days Time of Disposition: 12:56
[2021-12-14] MEDS ORDERED: BEBTELOVIMAB (EUA) 175 MG/2 ML VIAL IV ONE (13:30)
[2021-12-14 14:17] VITALS: BP 135/86; PULSE 84; TEMP 98.2
== END 2021-12-14 14:15 | disposition home or self-care (01) ==
LOC: EC 12:37
DX: U07.1 COVID-19 (principal); J44.9 Chronic obstructive pulmonary disease, unspecified; K21.9 Gastro-esophageal reflux disease without esophagitis; Z87.891 Personal history of nicotine dependence; Z88.1 Allergy status to other antibiotic agents; Z91.018 Allergy to other foods; Z79.899 Other long term (current) drug therapy
CPT/HCPCS: 99283; Q0222

== ENCOUNTER → 2022-02-28 | Outpatient (CLI) | payer OTHER ==
--- NOTE | 2022-02-28 10:25 | XR ---
EXAMINATION TYPE: XR ribs RT w pa chest xray DATE OF EXAM: 02/28/2022 COMPARISON: NONE TECHNIQUE: PA and lateral views submitted. HISTORY: Pain FINDINGS: The lungs are clear and there is no pneumothorax, pleural effusion, or focal pneumonia. Heart size normal. Hyperinflation suggests COPD. Arthropathy of the shoulders with diffuse osteopenia. Rib cage is intact. No acute displaced rib fracture. IMPRESSION: 1. No acute displaced rib fracture.
== END | disposition home or self-care (01) ==
LOC: RADXRMAIN 10:04
PROVIDERS: ATTEND Family Medicine
DX: R07.81 Pleurodynia (principal)

== ENCOUNTER 2022-07-03 14:56 | Emergency (ER) | payer OTHER ==
[2022-07-03 15:37] VITALS: BP 112/79; PULSE 88; RESP 16; TEMP 97.6
[2022-07-03 16:01] LABS: Basophils # (A) 0.1 k/uL (0-0.2); Basophils % (A) 1 %; Eosinophils # (A) 0.3 k/uL (0-0.7); Eosinophils % (A) 4 %; HCT 41.3 % (34.0-46.0); Lymphocytes # (A) 1.5 k/uL (1.0-4.8); Lymphocytes % (A) 18 %; MCH 35.2 pg (25.0-35.0); MCHC 36.2 g/dL (31.0-37.0); MCV 97.4 fL (80.0-100.0); Mean Platelet Volume 6.9; Monocytes # (A) 0.7 k/uL (0-1.0); Monocytes % (A) 8 %; Neutrophils # (A) 5.8 k/uL (1.3-7.7); Neutrophils % (A) 68 %; Platelet Count 224 k/uL (150-450); RBC 4.24 m/uL (3.80-5.40); RDW 11.6 % (11.5-15.5); WBC 8.5 k/uL (3.8-10.6)
[2022-07-03 16:03] LABS: Appearance,Urine Clear (Clear); Bacteria,Urine Rare /hpf; Bilirubin,Urine Negative (Negative); Blood,Urine Negative (Negative); Budding Yeast,Urine Occasional /hpf; Color,Urine Light Yellow; Glucose,Urine (UA) Negative (Negative); Ketones,Urine Negative (Negative); Leukocyte Esterase,Urine Small (Negative); Nitrite,Urine Negative (Negative); Protein,Urine Negative (Negative); RBC,Urine 3 /hpf (0-5); Specific Gravity,Urine 1.005 (1.001-1.035); Squamous Epithelial Cell,Urine 2 /hpf (0-4); Urobilinogen,Urine <2.0 mg/dL (<2.0); WBC,Urine 8 /hpf (0-5)
[2022-07-03 16:11] LABS: ALT 27 U/L (4-34); AST 32 U/L (14-36); African American GFR (CKD) >90 (>60 ml/min/1.73 sqM); Albumin 4.7 g/dL (3.5-5.0); Alkaline Phosphatase 83 U/L (38-126); Amylase 49 U/L (30-110); Anion Gap 4 mmol/L; Blood Urea Nitrogen 10 mg/dL (7-17); Calcium 9.4 mg/dL (8.4-10.2); Carbon Dioxide 29 mmol/L (22-30); Chloride 106 mmol/L (98-107); Glucose 80 mg/dL (74-99); Lipase 23 U/L (23-300); Non-African American GFR(CKD) 86 (>60 ml/min/1.73 sqM); Potassium 4.3 mmol/L (3.5-5.1); Sodium 139 mmol/L (137-145); Total Bilirubin 0.4 mg/dL (0.2-1.3); Total Protein 6.9 g/dL (6.3-8.2)
[2022-07-03] MEDS ORDERED: KETOROLAC 15 MG/ML 1 ML VIAL IVP STA (17:42)
--- NOTE | 2022-07-03 17:44 | ED ---
General Adult HPI - General Chief complaint: Abdominal Pain Stated complaint: ABD Pain,Back Pain Time Seen by Provider: 07/03/22 17:35 Source: patient, RN notes reviewed, old records reviewed Limitations: no limitations - History of Present Illness Initial comments: This is a well-appearing 51-year-old female that presents to the emergency room with right flank pain that started Sunday night. Patient states that today the pain migrated into her right groin. She denies any nausea vomiting diarrhea, fevers or dysuria. She does have family history of kidney stones but she does not. She is concerned for a kidney stone. -: days(s) (3) Location: right (flank) Radiation: other (right groin) Severity scale (1-10): 8 Consistency: constant Improves with: none Associated Symptoms: denies other symptoms Treatments Prior to Arrival: heat therapy - Related Data Home Medications Medication Instructions Recorded Confirmed Omeprazole 20 mg PO DAILY 11/15/16 04/02/21 Ibuprofen [Motrin] 800 mg PO Q8H PRN 04/02/21 04/02/21 buPROPion HCL [Wellbutrin SR] 150 mg PO DAILY 04/02/21 04/02/21 Allergies Allergy/AdvReac Type Severity Reaction Status Date / Time cephalexin [From Keflex] Allergy Abdominal Verified 12/14/21 12:43 Pain,UTI gluten Allergy Abdominal Verified 12/14/21 12:43 Pain Review of Systems ROS Statement: Those systems with pertinent positive or pertinent negative responses have been documented in the HPI. ROS Other: All systems not noted in ROS Statement are negative. Past Medical History Past Medical History: COPD, Fibromyalgia, GERD/Reflux, Osteoarthritis (OA) Additional Past Medical History / Comment(s): Celiac disease , back pain, ALPHA ONE LUNG DISEASE History of Any Multi-Drug Resistant Organisms: None Reported Past Surgical History: Hysterectomy, Tubal Ligation Additional Past Surgical History / Comment(s): PAIN PROC. Polyps removed from vocal cords. Past Anesthesia/Blood Transfusion Reactions: No Reported Reaction Past Psychological History: Bipolar, Depression Smoking Status: Former smoker Past Alcohol Use History: Occasional Past Drug Use History: Marijuana - Past Family History Mother Family Medical History: Deep Vein Thrombosis (DVT) Father Family Medical History: Cancer Sister(s) Family Medical History: Deep Vein Thrombosis (DVT) General Exam Limitations: no limitations General appearance: alert, in no apparent distress Head exam: Present: atraumatic Eye exam: Absent: scleral icterus, conjunctival injection Respiratory exam: Present: normal lung sounds bilaterally. Absent: respiratory distress, wheezes, rales, rhonchi, stridor, chest wall tenderness, accessory muscle use Cardiovascular Exam: Present: regular rate GI/Abdominal exam: Present: soft. Absent: distended, tenderness, guarding, rebound, rigid Extremities exam: Present: normal capillary refill Back exam: Present: normal inspection, full ROM. Absent: tenderness, CVA tenderness (R), CVA tenderness (L), paraspinal tenderness, vertebral tenderness, rash noted Neurological exam: Present: alert, oriented X3 Psychiatric exam: Present: normal affect, normal mood Skin exam: Present: warm, dry, normal color. Absent: cyanosis, diaphoretic, petechiae, pallor Course Vital Signs 07/03/22 15:33 Temperature 97.6 F Pulse Rate 88 Respiratory 16 Rate Blood Pressure 112/79 O2 Sat by Pulse 95 Oximetry Medical Decision Making - Medical Decision Making Patient presents with right flank pain that started Sunday night moving into her right groin. Denies nausea, vomiting, diarrhea, fevers or dysuria. Patient states has had similar pain after sleeping on her stomach and she did sleep on her stomach Sunday night when pain started. She has medical history of COPD, fibromyalgia, and osteoarthritis. X-ray KUB reviewed by me shows no abnormal calcifications. Radiologist interpretation no evidence of calculus. No pneumoperitoneum. No dilated loops of small bowel or large bowel. She was given Toradol with some relief. Labs are unremarkable. Urinalysis shows some bacteria and 8 white blood cells was sent for culture as patient denies any dysuria or hematuria. Patient does have pain with movement. This is likely musculoskeletal. Patient was offered Flexeril and declined stating that she does have that medication at home. She was encouraged follow-up with her primary care doctor this week. Return to the emergency room if her symptoms. Patient is agreeable to this plan of care. Case was discussed with Dr. Valladares. - Lab Data Result diagrams: 07/03/22 15:50 07/03/22 15:50 Lab Results 07/03/22 07/03/22 07/03/22 Range/Units 15:50 15:50 15:50 WBC 8.5 (3.8-10.6) k/uL RBC 4.24 (3.80-5.40) m/uL Hgb 15.0 (11.4-16.0) gm/dL Hct 41.3 (34.0-46.0) % MCV 97.4 (80.0-100.0) fL MCH 35.2 H (25.0-35.0) pg MCHC 36.2 (31.0-37.0) g/dL RDW 11.6 (11.5-15.5) % Plt Count 224 (150-450) k/uL MPV 6.9 Neutrophils % 68 % Lymphocytes % 18 % Monocytes % 8 % Eosinophils % 4 % Basophils % 1 % Neutrophils # 5.8 (1.3-7.7) k/uL Lymphocytes # 1.5 (1.0-4.8) k/uL Monocytes # 0.7 (0-1.0) k/uL Eosinophils # 0.3 (0-0.7) k/uL Basophils # 0.1 (0-0.2) k/uL Sodium (137-145) mmol/L Potassium (3.5-5.1) mmol/L Chloride (98-107) mmol/L Carbon Dioxide (22-30) mmol/L Anion Gap mmol/L BUN (7-17) mg/dL Creatinine (0.52-1.04) mg/dL Est GFR (CKD-EPI)AfAm (>60 ml/min/1.73 sqM) Est GFR (CKD-EPI)NonAf (>60 ml/min/1.73 sqM) Glucose (74-99) mg/dL Calcium (8.4-10.2) mg/dL Total Bilirubin (0.2-1.3) mg/dL AST (14-36) U/L ALT (4-34) U/L Alkaline Phosphatase (38-126) U/L Total Protein (6.3-8.2) g/dL Albumin (3.5-5.0) g/dL Amylase (30-110) U/L Lipase (23-300) U/L Urine Color Light Yellow Urine Appearance Clear (Clear) Urine pH 7.0 (5.0-8.0) Ur Specific [place] 1.005 (1.001-1.035) Urine Protein Negative (Negative) Urine Glucose (UA) Negative (Negative) Urine Ketones Negative (Negative) Urine Blood Negative (Negative) Urine Nitrite Negative (Negative) Urine Bilirubin Negative (Negative) Urine Urobilinogen <2.0 (<2.0) mg/dL Ur Leukocyte Esterase Small H (Negative) Urine RBC 3 (0-5) /hpf Urine WBC 8 H (0-5) /hpf Ur Squamous Epith Cells 2 (0-4) /hpf Urine Bacteria Rare H (None) /hpf Urine Yeast (Budding) Occasional H (None) /hpf Urine HCG, Qual Not Detected (Not Detectd) 07/03/22 Range/Units 15:50 WBC (3.8-10.6) k/uL RBC (3.80-5.40) m/uL Hgb (11.4-16.0) gm/dL Hct (34.0-46.0) % MCV (80.0-100.0) fL MCH (25.0-35.0) pg MCHC (31.0-37.0) g/dL RDW (11.5-15.5) % Plt Count (150-450) k/uL MPV Neutrophils % % Lymphocytes % % Monocytes % % Eosinophils % % Basophils % % Neutrophils # (1.3-7.7) k/uL Lymphocytes # (1.0-4.8) k/uL Monocytes # (0-1.0) k/uL Eosinophils # (0-0.7) k/uL Basophils # (0-0.2) k/uL Sodium 139 (137-145) mmol/L Potassium 4.3 (3.5-5.1) mmol/L Chloride 106 (98-107) mmol/L Carbon Dioxide 29 (22-30) mmol/L Anion Gap 4 mmol/L BUN 10 (7-17) mg/dL Creatinine 0.80 (0.52-1.04) mg/dL Est GFR (CKD-EPI)AfAm >90 (>60 ml/min/1.73 sqM) Est GFR (CKD-EPI)NonAf 86 (>60 ml/min/1.73 sqM) Glucose 80 (74-99) mg/dL Calcium 9.4 (8.4-10.2) mg/dL Total Bilirubin 0.4 (0.2-1.3) mg/dL AST 32 (14-36) U/L ALT 27 (4-34) U/L Alkaline Phosphatase 83 (38-126) U/L Total Protein 6.9 (6.3-8.2) g/dL Albumin 4.7 (3.5-5.0) g/dL Amylase 49 (30-110) U/L Lipase 23 (23-300) U/L Urine Color Urine Appearance (Clear) Urine pH (5.0-8.0) Ur Specific [place] (1.001-1.035) Urine Protein (Negative) Urine Glucose (UA) (Negative) Urine Ketones (Negative) Urine Blood (Negative) Urine Nitrite (Negative) Urine Bilirubin (Negative) Urine Urobilinogen (<2.0) mg/dL Ur Leukocyte Esterase (Negative) Urine RBC (0-5) /hpf Urine WBC (0-5) /hpf Ur Squamous Epith Cells (0-4) /hpf Urine Bacteria (None) /hpf Urine Yeast (Budding) (None) /hpf Urine HCG, Qual (Not Detectd) Disposition Clinical Impression: Acute flank pain Disposition: HOME SELF-CARE Condition: Good Instructions (If sedation given, give patient instructions): Flank Pain (ED) Additional Instructions: Tylenol and/or Motrin as needed for any pain or discomfort. You can continue to use heat. Follow-up with your primary care doctor this week. Return to the emergency room with any new or concerning symptoms including fevers, increased pain, persistent nausea and vomiting. Is patient prescribed a controlled substance at d/c from ED?: No Referrals: Batsheva Oliveira MD [Primary Care Provider] - 1-2 days Time of Disposition: 18:26
[2022-07-03] MEDS ORDERED: KETOROLAC 15 MG/ML 1 ML VIAL IM STA (17:53)
--- NOTE | 2022-07-03 18:18 | XR ---
EXAMINATION TYPE: XR KUB DATE OF EXAM: 07/03/2022 5:55 PM INDICATION: Patient age:Female; 51 years old; Reason for study: flank pain; COMPARISON: 10/20/2020 CT. TECHNIQUE: One radiographic view of the abdomen was obtained. FINDINGS: The bowel gas pattern is nonspecific without dilated loops of small or large bowel. There i s no evidence for organomegaly or pneumoperitoneum. The osseous structures are intact. Pelvic lymph nodes are present. No densities project over the kidneys. Fecal material and gas are demonstrated thr oughout the colon and rectum. IMPRESSION: No radiographic evidence for calculus.
== END 2022-07-03 18:46 | disposition home or self-care (01) ==
LOC: EC 14:56
DX: R10.9 Unspecified abdominal pain (principal); J44.9 Chronic obstructive pulmonary disease, unspecified; K21.9 Gastro-esophageal reflux disease without esophagitis; M19.90 Unspecified osteoarthritis, unspecified site; F31.9 Bipolar disorder, unspecified; Z87.891 Personal history of nicotine dependence; F12.90 Cannabis use, unspecified, uncomplicated; Z88.1 Allergy status to other antibiotic agents; Z91.018 Allergy to other foods
CPT/HCPCS: 36415; 80053; 82150; 83690; 85025; 81001; 81025; 74018; 99284; 96372; J1885

== ENCOUNTER 2022-12-18 14:55 | Emergency (ER) | payer OTHER ==
[2022-12-18 15:10] VITALS: BP 130/83; PULSE 83; RESP 16; TEMP 98
[2022-12-18] MEDS ORDERED: TOPICAL SKIN ADHESIVE 1 EACH AMP TOPICAL ONE (15:27)
--- NOTE | 2022-12-18 15:47 | ED ---
Wound/Laceration HPI - General Chief Complaint: Wound/Laceration Stated Complaint: right finger laceration Time Seen by Provider: 12/18/22 15:16 Source: patient Mode of arrival: ambulatory Limitations: no limitations - History of Present Illness Initial Comments: Patient is a 52-year-old female presenting with chief complaint of laceration to the fourth digit on the right hand. He was cleaning her windowsill and cut it on a metal edge. She is not on any blood thinners. No numbness or tingling. Bleeding is well-controlled at this time. Laceration is superficial measuring 1-1/2 cm. Tetanus is up-to-date. - Related Data Home Medications Medication Instructions Recorded Confirmed Omeprazole 20 mg PO DAILY 11/15/16 04/02/21 Ibuprofen [Motrin] 800 mg PO Q8H PRN 04/02/21 04/02/21 buPROPion HCL [Wellbutrin SR] 150 mg PO DAILY 04/02/21 04/02/21 Allergies Allergy/AdvReac Type Severity Reaction Status Date / Time cephalexin [From Keflex] Allergy Abdominal Verified 12/18/22 15:10 Pain,UTI gluten Allergy Abdominal Verified 12/18/22 15:10 Pain Review of Systems ROS Statement: Those systems with pertinent positive or pertinent negative responses have been documented in the HPI. ROS Other: All systems not noted in ROS Statement are negative. Past Medical History Past Medical History: COPD, Fibromyalgia, GERD/Reflux, Osteoarthritis (OA) Additional Past Medical History / Comment(s): Celiac disease , back pain, ALPHA ONE LUNG DISEASE History of Any Multi-Drug Resistant Organisms: None Reported Past Surgical History: Hysterectomy, Tubal Ligation Additional Past Surgical History / Comment(s): PAIN PROC. Polyps removed from v ocal cords. Past Anesthesia/Blood Transfusion Reactions: No Reported Reaction Past Psychological History: Bipolar, Depression Smoking Status: Former smoker Past Alcohol Use History: Occasional Past Drug Use History: Marijuana - Past Family History Mother Family Medical History: Deep Vein Thrombosis (DVT) Father Family Medical History: Cancer Sister(s) Family Medical History: Deep Vein Thrombosis (DVT) General Exam Limitations: no limitations General appearance: alert, in no apparent distress Head exam: Present: atraumatic, normocephalic, normal inspection Eye exam: Present: normal appearance, EOMI. Absent: scleral icterus, periorbita l swelling Neck exam: Present: normal inspection, full ROM Neurological exam: Present: alert, oriented X3, CN II-XII intact Psychiatric exam: Present: normal affect, normal mood Expanded Type of lesion: Present: laceration (Superficial laceration to the right fourth digit) Course Vital Signs 12/18/22 15:07 Temperature 98.0 F Pulse Rate 83 Respiratory 16 Rate Blood Pressure 130/83 O2 Sat by Pulse 98 Oximetry Procedures - Laceration Laceration #1 Consent Obtained: verbal consent Indication: laceration Site: hand Description: linear Depth: simple, single layer Type of Sutures: other (exofin) Patient Tolerated Procedure: well Medical Decision Making - Medical Decision Making Was pt. sent in by a medical professional or institution ([facility], [facility], urgent care, hospital, or senior living...) When possible be specific @ -No Did you speak to anyone other than the patient for history (EMS, parent, family, police, friend...)? What history was obtained from this source @ -No Did you review nursing and triage notes (agree or disagree)? Why? @ -I reviewed and agree with nursing and triage notes Were old charts reviewed (outside hosp., previous admission, EMS record, old EKG, old radiological studies, urgent care reports/EKG's, senior living records)? Report findings @ -No old charts were reviewed Differential Diagnosis (chest pain, altered mental status, abdominal pain women, abdominal pain men, vaginal bleeding, weakness, fever, dyspnea, syncope, headache, dizziness, GI bleed, back pain, seizure, CVA, palpatations, mental health, musculoskeletal)? @ -not applicable EKG interpreted by me (3pts min.). @ -As above X-rays interpreted by me (1pt min.). @ -None done CT interpreted by me (1pt min.). @ -None done U/S interpreted by me (1pt. min.). @ -None done What testing was considered but not performed or refused? (CT, X-rays, U/S, labs)? Why? @ -None What meds were considered but not given or refused? Why? @ -None Did you discuss the management of the patient with other professionals (professionals i.e. [facility], [facility] [facility], lab, RT, psych nurse, social worker delinquency prevention, end packer, teacher, special officer automat, pillowcase cutter)? Give summary @ -No Was smoking cessation discussed for >3mins.? @ -No Was critical care preformed (if so, how long)? @ -No Were there social determinants of health that impacted care today? How? (Homelessness, low income, unemployed, alcoholism, drug addiction, transportation, low edu. Level, literacy, decrease access to med. care, shelter, rehab)? @ -No Was there de-escalation of care discussed even if they declined (Discuss DNR or withdrawal of care, Hospice)? DNR status @ -No What co-morbidities impacted this encounter? (DM, HTN, Smoking, COPD, CAD, Cancer, CVA, ARF, Chemo, Hep., AIDS, mental health diagnosis, sleep apnea, morbid obesity)? @ -None Was patient admitted / discharged? Hospital course, mention meds given and route, prescriptions, significant lab abnormalities, going to OR and other pertinent info. @ -Patient is a 52-year-old female presenting with chief complaint of superficial laceration. Wound is repaired using Dermabond. Tetanus is up to date. Patient has educated on wound care and signs of infection. Follow-up with PCP. Report back to ER with any new or worsening symptoms. Discussed return pa ramalix and answered all questions. Patient conveyed verbal understanding and agreed to the plan. I discussed this case in detail with my attending Dr. Storm Undiagnosed new problem with uncertain prognosis? @ -No Drug Therapy requiring intensive monitoring for toxicity (Heparin, Nitro, Insulin, Cardizem)? @ -No Were any procedures done? @ -Laceration repair using exofin Diagnosis/symptom? @ -Laceration Acute, or Chronic, or Acute on Chronic? @ -Acute Uncomplicated (without systemic symptoms) or Complicated (systemic symptoms)? @ -Uncomplicated Side effects of treatment? @ -No Exacerbation, Progression, or Severe Exacerbation? @ -No Poses a threat to life or bodily function? How? (Chest pain, USA, AR, pneumonia, PE, COPD, DKA, ARF, appy, cholecystitis, CVA, Diverticulitis, Homicidal, Suicidal, threat to staff... and all critical care pts) @ -No Disposition Clinical Impression: Laceration Disposition: HOME SELF-CARE Condition: Good Instructions (If sedation given, give patient instructions): Laceration (ED), Skin Adhesive Care (ED) Additional Instructions: Follow-up with PCP. Report back to ER with any new or worsening symptoms. Monitor for signs of infection, including but not limited to redness, swelling, pain, discharge, fever, chills. Keep the wound clean and dry and covered. Avoid fully submerging the wound. Clean with soap and water. Do not apply Neosporin or other ointment-based products as this will break down the skin adhesive. Is patient prescribed a controlled substance at d/c from ED?: No Referrals: Batsheva Oliveira MD [Primary Care Provider] - 1-2 days Time of Disposition: 15:46
== END 2022-12-18 16:05 | disposition home or self-care (01) ==
LOC: EC 14:55
DX: S61.214A Laceration without foreign body of right ring finger without damage to nail, initial encounter (principal); J44.9 Chronic obstructive pulmonary disease, unspecified; K21.9 Gastro-esophageal reflux disease without esophagitis; F31.9 Bipolar disorder, unspecified; F12.90 Cannabis use, unspecified, uncomplicated; Z87.891 Personal history of nicotine dependence; Z88.1 Allergy status to other antibiotic agents; Z91.048 Other nonmedicinal substance allergy status; Z79.899 Other long term (current) drug therapy; W26.8XXA Contact with other sharp object(s), not elsewhere classified, initial encounter
CPT/HCPCS: 12001; 99282

== ENCOUNTER → 2023-01-11 | Outpatient (CLI) | payer OTHER ==
--- NOTE | 2023-01-11 18:08 | XR ---
EXAMINATION TYPE: XR elbow complete LT DATE OF EXAM: 01/11/2023 COMPARISON: NONE HISTORY: 52-year-old female [id number], left elbow lateral epicondylitis. Pain, difficulty extending the e lbow. TECHNIQUE: 3 views FINDINGS: No acute fracture, subluxation, or dislocation. No elbow joint effusion. IMPRESSION: No acute osseous abnormality seen.
== END | disposition home or self-care (01) ==
LOC: RADXRMAIN 13:39
PROVIDERS: ATTEND Family Medicine
DX: M77.12 Lateral epicondylitis, left elbow (principal)

== ENCOUNTER 2023-01-23 08:54 | Day surgery (SDC) | payer OTHER ==
[~2023-01-23 08:54] MED LIST changes: -DEXAMETHASONE SOD PHOSPHATE 10 MG/ML 1 ML VIAL IV ONE; -LIDOCAINE 1% 20 ML VIAL (10MG/ML) FOR IV START INTRADERMA PRN; -ONDANSETRON 4 MG/2 ML VIAL IVP ONE; -SCOPOLAMINE 1.5MG/72HR PATCH TRANSDERM ONE
[2023-01-23 09:58] VITALS: RESP 16; TEMP 97
[2023-01-23] MEDS ORDERED: PROPOFOL 10 MG/ML 20 ML VIAL IV ONE (10:57)
[2023-01-23] MEDS ORDERED: LIDOCAINE 2% INJ 20 MG/ML (2 ML VIAL) ONE (10:57)
--- NOTE | 2023-01-23 10:59 | P.PCN ---
Date of Procedure: 01/23/23 Procedure(s) Performed: BRIEF HISTORY: Patient is a 52-year-old, pleasant, white female scheduled for an upper endoscopy as a part of evaluation of long-standing history of GERD. Her last admission been having severe epigastric pain despite being on Protonix 40 mg twice daily. She also has history of celiac disease. On a strict gluten- free diet. PROCEDURE PERFORMED: Esophagogastroduodenoscopy with biopsy. PREOPERATIVE DIAGNOSIS: Long-standing history of GERD/worsening epigastric. IV sedation per anesthesia. PROCEDURE: After informed consent was obtained, the patient was brought into the endoscopy unit. IV sedation was administered by Anesthesia under continuous monitoring. Initially the Olympus GIF-140 video endoscope was inserted into the mouth. Esophagus intubated without any difficulty. It was gradually advanced into the stomach and duodenum and carefully examined. The bulb and the second part of the duodenum appeared normal. Multiple biopsies were done from the second part of the duodenum to evaluate for celiac disease. The scope at this time was withdrawn to the stomach, adequately insufflated with air, and upon careful examination, mucosa of the antrum, had mild gastritis and biopsies were done from this area. Mucosa of the body, cardia and the fundus appeared normal. The scope was then withdrawn into the esophagus. The GE junction was located at 39 cm from the incisors. The esophagus appeared normal. There were 2 superficial erosions consistent with LA grade B reflux esophagitis and the patient tolerated the procedure well. IMPRESSION: 1. Mild antral gastritis. 2. LA grade B reflux esophagitis. RECOMMENDATIONS: The findings of this examination were discussed with the patient as well as a family. She was advised to follow with biopsy results. Continue with Protonix 40 mg twice daily and follow antireflux measures..
[2023-01-23 11:25] VITALS: BP 134/85; PULSE 72
== END 2023-01-23 11:32 | disposition home or self-care (01) ==
LOC: ORWHC2ENDO 08:54
PROVIDERS: ATTEND Internal Medicine Gastroenterology
DX: K29.50 Unspecified chronic gastritis without bleeding (principal); K21.00 Gastro-esophageal reflux disease with esophagitis, without bleeding; J44.9 Chronic obstructive pulmonary disease, unspecified; K21.9 Gastro-esophageal reflux disease without esophagitis; Z79.899 Other long term (current) drug therapy
CPT/HCPCS: 43239; J2704; J2001; 88305

== ENCOUNTER 2023-07-26 09:33 | Emergency (ER) | payer OTHER ==
[2023-07-26 10:04] VITALS: PULSE 78; RESP 18
[2023-07-26] MEDS ORDERED: KETOROLAC 15 MG/ML 1 ML VIAL IM STA (10:19)
--- NOTE | 2023-07-26 10:19 | ED ---
Back Pain HPI - General Chief Complaint: Back Pain/Injury Stated Complaint: back pain Time Seen by Provider: 07/26/23 10:17 Source: patient, RN notes reviewed Limitations: no limitations - History of Present Illness Initial Comments: Patient is a 52-year-old female presented ER chief complaint back pain. Patient has a past medical history for celiac disease, COPD, alpha-1 antitrypsin lung disease, fibromyalgia. She states this going on for about 3 or 4 days. She states it is now wrapping around to her ribs and it hurts to breathe. She does also report that this morning she had a fluttering sensation in her chest. Denies any trauma. Patient denies any dysuria, increasing frequency, or history of kidney stones. She reports there is a family history of kidney stones. Patient reports that she did have one episode of diarrhea last night but relates it to her celiac disease as she went out to eat at a restaurant. Patient denies any fevers, chills, night sweats. - Related Data Home Medications Medication Instructions Recorded Confirmed buPROPion HCL [Wellbutrin SR] 150 mg PO BID 04/02/21 01/22/23 Albuterol Sulfate [Proair 1 puff INHALATION BID PRN 01/22/23 01/22/23 Digihaler] Budesonide/Formoterol Fumarate 1 puff INHALATION BID PRN 01/22/23 01/22/23 [Symbicort 160-4.5 Mcg Inhaler] Lansoprazole [Prevacid] 15 mg PO DAILY 01/22/23 01/22/23 Pantoprazole [Protonix] 40 mg PO DAILY 01/22/23 01/22/23 Previous Rx's Medication Instructions Recorded Lidocaine 5% Patch [Lidoderm] 1 patch TOPICAL DAILY #10 patch 07/26/23 Orphenadrine [Norflex] 100 mg PO Q12H 7 Days #14 tab 07/26/23 Allergies Allergy/AdvReac Type Severity Reaction Status Date / Time cephalexin [From Keflex] Allergy Abdominal Verified 01/23/23 09:43 Pain,UTI gluten Allergy Abdominal Verified 01/23/23 09:43 Pain Review of Systems ROS Statement: Those systems with pertinent positive or pertinent negative responses have been documented in the HPI. ROS Other: All systems not noted in ROS Statement are negative. Past Medical History Past Medical History: COPD, Fibromyalgia, GERD/Reflux, Osteoarthritis (OA) Additional Past Medical History / Comment(s): Celiac disease , back pain, ALPHA ONE LUNG DISEASE History of Any Multi-Drug Resistant Organisms: None Reported Past Surgical History: Hysterectomy, Tubal Ligation Additional Past Surgical History / Comment(s): PAIN PROC. Polyps removed from vocal cords. Past Anesthesia/Blood Transfusion Reactions: No Reported Reaction Past Psychological History: Bipolar, Depression Smoking Status: Former smoker Past Alcohol Use History: Occasional Past Drug Use History: Marijuana - Past Family History Mother Family Medical History: Deep Vein Thrombosis (DVT) Father Family Medical History: Cancer Sister(s) Family Medical History: Deep Vein Thrombosis (DVT) General Exam - General Exam Comments Initial Comments: Visual Physical Exam Vital signs reviewed General: Well-appearing, nontoxic, no acute distress. Head: Normocephalic, atraumatic Eyes: PERRLA, EOMI ENT: Airway patent Chest: Nonlabored breathing Skin: No visual rash, normal skin tone Neuro: Alert and oriented 3 Musculoskeletal: No gross abnormalities Limitations: no limitations General appearance: alert, in no apparent distress Head exam: Present: atraumatic, normocephalic, normal inspection ENT exam: Present: normal exam, normal oropharynx, mucous membranes moist, TM's normal bilaterally Neck exam: Present: normal inspection. Absent: tenderness, meningismus, lymphadenopathy Respiratory exam: Present: normal lung sounds bilaterally, rhonchi (left lower ). Absent: respiratory distress, wheezes, rales, stridor Cardiovascular Exam: Present: regular rate, normal rhythm, normal heart sounds. Absent: systolic murmur, diastolic murmur, rubs, gallop, clicks GI/Abdominal exam: Present: soft, normal bowel sounds. Absent: distended, tenderness, guarding, rebound, rigid Back exam: Present: normal inspection Neurological exam: Present: alert, oriented X3, CN II-XII intact Psychiatric exam: Present: normal affect, normal mood Skin exam: Present: warm, dry, intact, normal color. Absent: rash Course Vital Signs 07/26/23 09:57 Temperature 97.9 F Pulse Rate 78 Respiratory 18 Rate Blood Pressure 180/109 O2 Sat by Pulse 98 Oximetry Medical Decision Making - Medical Decision Making I performed the quick note portion of the exam. Electronically signed by Nicko Vigil PA-C Was pt. sent in by a medical professional or institution ([facility] Naranjo, IRON SETTER, urgent care, hospital, or assisted...) When possible be specific @ -No Did you speak to anyone other than the patient for history (EMS, parent, family, police, friend...)? What history was obtained from this source @ -No Did you review nursing and triage notes (agree or disagree)? Why? @ -I reviewed and agree with nursing and triage notes Were old charts reviewed (outside hosp., previous admission, EMS record, old EKG, old radiological studies, urgent care reports/EKG's, assisted records)? Report findings @ -No old charts were reviewed Differential Diagnosis (chest pain, altered mental status, abdominal pain women, abdominal pain men, vaginal bleeding, weakness, fever, dyspnea, syncope, headache, dizziness, GI bleed, back pain, seizure, CVA, palpatations, mental health, musculoskeletal)? @ -Differential Back Pain: Strain, zoster, cauda equina syndrome, epidural abscess, vertebral osteomyelitis, discitis, fracture, subluxation, disc herniation, DJD, spinal stenosis, dissection, AAA, pancreatitis, peptic ulcer disease, pyelonephritis, kidney stone, this is not meant to be an all-inclusive list. EKG interpreted by me (3pts min.). @ -As above X-rays interpreted by me (1pt min.). @ -Chest x-ray shows no acute cardio pulmonary process. COPD changes present. There is a 6 mm nodule in the right upper lobe that could present percent external artifact. Follow-up CT is recommended. CT interpreted by me (1pt min.). @ -None done U/S interpreted by me (1pt. min.). @ -None done What testing was considered but not performed or refused? (CT, X-rays, U/S, labs)? Why? @ -None What meds were considered but not given or refused? Why? @ -None Did you discuss the management of the patient with other professionals (professionals i.e. MENDEL Naranjo, IRON SETTER, lab, RT, psych nurse, social science research assistant, cement side laster, teacher, senior major gifts officer, case packer and sealer)? Give summary @ -No Was smoking cessation discussed for >3mins.? @ -No Was critical care preformed (if so, how long)? @ -No Were there social determinants of health that impacted care today? How? (Home lessness, low income, unemployed, alcoholism, drug addiction, transportation, low edu. Level, literacy, decrease access to med. care, intermediate, rehab)? @ -No Was there de-escalation of care discussed even if they declined (Discuss DNR or withdrawal of care, Hospice)? DNR status @ -No What co-morbidities impacted this encounter? (DM, HTN, Smoking, COPD, CAD, Cancer, CVA, ARF, Chemo, Hep., AIDS, mental health diagnosis, sleep apnea, morbid obesity)? @ -None Was patient admitted / discharged? Hospital course, mention meds given and route, prescriptions, significant lab abnormalities, going to OR and other pertinent info. @ -Discharge. Patient is a 52-year-old female presented ER with chief complaint of back pain. Upon examination, patient's vital signs are stable. Physical exam was significant for tenderness to palpation of right thoracic back and ribs. Pat ient did report that pain was worse with breathing movements. Labs obtained in the ER were significant for an AST 57, ALT 57, troponin was negative, D-dimer was 0.24. Urinalysis was on remarkable for signs of infection. EKG showed normal sinus rhythm with no acute ST segment T-wave abnormalities. Chest x-ray no acute cardio pulmonary process. COPD changes present. There is a 6 mm nodule in the right upper lobe that could present percent external artifact. Follow-up CT is recommended. Patient received IM ketorolac for pain control in the ER with improvement. Upon reevaluation, I discussed lab and imaging results with the patient. Patient prescribed Norflex and lidocaine patches at discharge for muscle spams. I advised patient to take [id number] Tylenol Motrin for pain control. Patient will be discharged in stable condition with follow-up to PCP. Return parameters were discussed. Patient expressed understanding and agreement with care plan. Undiagnosed new problem with uncertain prognosis? @ -No Drug Therapy requiring intensive monitoring for toxicity (Heparin, Nitro, Insulin, Cardizem)? @ -No Were any procedures done? @ -No Diagnosis/symptom? @ -Muscle spasm Acute, or Chronic, or Acute on Chronic? @ -Acute Uncomplicated (without systemic symptoms) or Complicated (systemic symptoms)? @ -Uncomplicated Side effects of treatment? @ -No Exacerbation, Progression, or Severe Exacerbation? @ -No Poses a threat to life or bodily function? How? (Chest pain, [place], [place], pneumonia, PE, COPD, DKA, ARF, appy, cholecystitis, CVA, Diverticulitis, Homicidal, Suicidal, threat to staff... and all critical care pts) @ -No - Lab Data Result diagrams: 07/26/23 11:07/26/23 11: Lab Results 07/26/23 07/26/23 07/26/23 Range/Units 10:18 11: 11:26 WBC 4.6 (3.8-10.6) k/uL RBC 3.93 (3.80-5.40) m/uL Hgb 13.8 (11.4-16.0) gm/dL Hct 40.2 (34.0-46.0) % MCV 102.5 H (80.0-100.0) fL MCH 35.2 H (25.0-35.0) pg MCHC 34.4 (31.0-37.0) g/dL RDW 12.5 (11.5-15.5) % Plt Count 197 (150-450) k/uL MPV 7.2 Macrocytosis Slight D-Dimer 0.24 (<0.60) mg/L FEU Sodium (137-145) mmol/L Potassium (3.5-5.1) mmol/L Chloride (98-107) mmol/L Carbon Dioxide (22-30) mmol/L Anion Gap mmol/L BUN (7-17) mg/dL Creatinine (0.52-1.04) mg/dL Est GFR (CKD-EPI)AfAm (>60 ml/min/1.73 sqM) Est GFR (CKD-EPI)NonAf (>60 ml/min/1.73 sqM) Glucose (74-99) mg/dL Calcium (8.4-10.2) mg/dL Total Bilirubin (0.2-1.3) mg/dL AST (14-36) U/L ALT (4-34) U/L Alkaline Phosphatase (38-126) U/L Troponin I (0.000-0.034) ng/mL Total Protein (6.3-8.2) g/dL Albumin (3.5-5.0) g/dL Urine Color Colorless Urine Appearance Clear (Clear) Urine pH 7.0 (5.0-8.0) Ur Specific [place] 1.006 (1.001-1.035) Urine Protein Negative (Negative) Urine Glucose (UA) Negative (Negative) Urine Ketones Negative (Negative) Urine Blood Negative (Negative) Urine Nitrite Negative (Negative) Urine Bilirubin Negative (Negative) Urine Urobilinogen <2.0 (<2.0) mg/dL Ur Leukocyte Esterase Negative (Negative) 07/26/23 07/26/23 Range/Units 11:26 11:26 WBC (3.8-10.6) k/uL RBC (3.80-5.40) m/uL Hgb (11.4-16.0) gm/dL Hct (34.0-46.0) % MCV (80.0-100.0) fL MCH (25.0-35.0) pg MCHC (31.0-37.0) g/dL RDW (11.5-15.5) % Plt Count (150-450) k/uL MPV Macrocytosis D-Dimer (<0.60) mg/L FEU Sodium 139 (137-145) mmol/L Potassium 4.4 (3.5-5.1) mmol/L Chloride 106 (98-107) mmol/L Carbon Dioxide 26 (22-30) mmol/L Anion Gap 7 mmol/L BUN 9 (7-17) mg/dL Creatinine 0.73 (0.52-1.04) mg/dL Est GFR (CKD-EPI)AfAm >90 (>60 ml/min/1.73 sqM) Est GFR (CKD-EPI)NonAf >90 (>60 ml/min/1.73 sqM) Glucose 92 (74-99) mg/dL Calcium 9.4 (8.4-10.2) mg/dL Total Bilirubin 0.7 (0.2-1.3) mg/dL AST 57 H (14-36) U/L ALT 57 H (4-34) U/L Alkaline Phosphatase 86 (38-126) U/L Troponin I <0.012 (0.000-0.034) ng/mL Total Protein 6.3 (6.3-8.2) g/dL Albumin 4.1 (3.5-5.0) g/dL Urine Color Urine Appearance (Clear) Urine pH (5.0-8.0) Ur Specific [place] (1.001-1.035) Urine Protein (Negative) Urine Glucose (UA) (Negative) Urine Ketones (Negative) Urine Blood (Negative) Urine Nitrite (Negative) Urine Bilirubin (Negative) Urine Urobilinogen (<2.0) mg/dL Ur Leukocyte Esterase (Negative) - EKG Data -: EKG Interpreted by Me EKG Comments: EKG taken at 11:53 shows normal sinus rhythm with no acute ST segment or T-wave abnormalities noted. Ventricular rate 76, MN interval 141, QRS duration 99, QT/QTC 390/421. - Radiology Data Radiology results: report reviewed, image reviewed Disposition Clinical Impression: Muscle spasm Disposition: HOME SELF-CARE Condition: Stable Instructions (If sedation given, give patient instructions): Muscle Spasm (ED) Additional Instructions: Please return to the Emergency Department if symptoms worsen or any other concerns. Prescriptions: Lidocaine 5% Patch [Lidoderm] 1 patch TOPICAL DAILY #10 patch Orphenadrine [Norflex] 100 mg PO Q12H 7 Days #14 tab Is patient prescribed a controlled substance at d/c from ED?: No Referrals: Batsheva Oliveira MD [Primary Care Provider] - 1-2 days Time of Disposition: 13:14
[2023-07-26 11:14] LABS: Appearance,Urine Clear (Clear); Color,Urine Colorless
[2023-07-26 11:15] LABS: Bilirubin,Urine Negative (Negative); Blood,Urine Negative (Negative); Glucose,Urine (UA) Negative (Negative); Ketones,Urine Negative (Negative); Leukocyte Esterase,Urine Negative (Negative); Nitrite,Urine Negative (Negative); Protein,Urine Negative (Negative); Specific Gravity,Urine 1.006 (1.001-1.035); Urobilinogen,Urine <2.0 mg/dL (<2.0)
[2023-07-26 12:03] LABS: HCT 40.2 % (34.0-46.0); HGB 13.8 gm/dL (11.4-16.0); MCH 35.2 pg (25.0-35.0); MCHC 34.4 g/dL (31.0-37.0); MCV 102.5 fL (80.0-100.0); Macrocytosis Slight; Mean Platelet Volume 7.2; Platelet Count 197 k/uL (150-450); RBC 3.93 m/uL (3.80-5.40); RDW 12.5 % (11.5-15.5); WBC 4.6 k/uL (3.8-10.6)
[2023-07-26 12:10] LABS: ALT 57 U/L (4-34); AST 57 U/L (14-36); African American GFR (CKD) >90 (>60 ml/min/1.73 sqM); Albumin 4.1 g/dL (3.5-5.0); Alkaline Phosphatase 86 U/L (38-126); Anion Gap 7 mmol/L; Blood Urea Nitrogen 9 mg/dL (7-17); Calcium 9.4 mg/dL (8.4-10.2); Carbon Dioxide 26 mmol/L (22-30); Chloride 106 mmol/L (98-107); Glucose 92 mg/dL (74-99); Non-African American GFR(CKD) >90 (>60 ml/min/1.73 sqM); Potassium 4.4 mmol/L (3.5-5.1); Sodium 139 mmol/L (137-145); Total Bilirubin 0.7 mg/dL (0.2-1.3); Total Protein 6.3 g/dL (6.3-8.2)
--- NOTE | 2023-07-26 12:53 | XR ---
EXAMINATION TYPE: XR chest 2V DATE OF EXAM: 07/26/2023 COMPARISON: 02/28/2022 HISTORY: 52-year-old female posterior chest pain TECHNIQUE: PA and lateral views FINDINGS: There is a 6 mm nodule that projects at the periphery of the right upper lobe. Unclear if this repres ents external artifact or an underlying pulmonary nodule. Hyperinflation and interstitial prominence. No consolidation or pleural effusion. IMPRESSION: COPD. No acute process seen. There is a 6 mm nodule projecting at the periphery of the right upper lo be that could represent external artifact. Follow-up outpatient CT chest to exclude an underlying pul monary nodule.
[2023-07-26 13:28] VITALS: BP 138/78; TEMP 98.3
== END 2023-07-26 13:20 | disposition home or self-care (01) ==
LOC: EC 09:33
DX: M62.830 Muscle spasm of back (principal); J44.9 Chronic obstructive pulmonary disease, unspecified; K21.9 Gastro-esophageal reflux disease without esophagitis; M19.90 Unspecified osteoarthritis, unspecified site; F31.9 Bipolar disorder, unspecified; F12.90 Cannabis use, unspecified, uncomplicated; Z79.899 Other long term (current) drug therapy; Z87.891 Personal history of nicotine dependence; Z91.018 Allergy to other foods; Z88.1 Allergy status to other antibiotic agents
CPT/HCPCS: 36415; 93005; 85379; 80053; 84484; 85027; 81003; 71046; 99284; 96372; J1885

== ENCOUNTER → 2024-02-11 | Outpatient (CLI) | payer OTHER ==
--- NOTE | 2024-02-12 18:57 | CTL ---
EXAMINATION TYPE: CT Low Dose Lung DATE OF EXAM ORDERED: 02/11/2024 HISTORY: . Lung cancer screening CT DLP: mGycm CT CTDI: mGy Automated exposure control for dose reduction was used. SCREENING VISIT: COMPARISON: TECHNIQUE: Low dose computed tomography scan was performed through the chest at 1 mm thick sections a nd reconstructed images in the coronal plane at [address] DIAGNOSTIC QUALITY: Satisfactory FINDINGS: LUNG NODULES: Present, detailed below: 1. There is a 1.1 x 0.6 cm oval spiculated density lateral right upper lung field. Series 4 image 58. LUNGS: COPD: Severity: Moderate Fibrosis: Severity: None Lymph nodes: Small shotty lymphadenopathy within the mediastinum. No enlarged mediastinal adenopathy evident. Other findings: None RIGHT PLEURAL SPACE: Effusion: None Calcification: None Thickening: None Pneumothorax: None LEFT PLEURAL SPACE: Effusion: None Calcification: None Thickening: None Pneumothorax: None HEART: Other: Ascending thoracic aorta at the level the main pulmonary artery measures 3.2 cm. The main pul monary artery at the bifurcation measures 2.5 cm. Heart Size: Normal Coronary calcification: Pericardial effusion: None OTHER FINDINGS: Upper abdomen: Normal Bony thorax: Normal Supraclavicular region: Normal IMPRESSION: Suspicious nodule lateral right upper lung field. FOLLOW UP CT CHEST RECOMMENDATION: Additional workup with PET CT recommended. CT LUNG RAD: Lung-Rad 4A Suspicious
--- NOTE | 2024-02-14 13:58 | MM ---
Reason for Exam: Screening (asymptomatic). Last mammogram was performed 3 year(s) and 0 month(s) ago. Patient History: Menarche at age 12. First Full-Term at age 17. Left ovary removed at age 38. Right ovary removed at age 38. Hysterectomy at age 38. Postmenopausal. Mother had breast cancer, age 55. Risk Values: Macie 5 year model risk: 2.0%. NCI Lifetime model risk: 15.3%. Prior Study Comparison: 06/11/2018 Bilateral Screening Mammogram, Unknown. 01/27/2020 Bilateral Screening Mammogram, Unknown. 08/03/2020 Bilateral Diagnostic Mammogram, Unknown. 03/03/2021 Bilateral Screening Mammogram, Unknown. Tissue Density: There are scattered areas of fibroglandular density. Findings: Analyzed By CAD. Right breast: There is no suspicious group of microcalcifications or new suspicious mass. Left breast: There is no suspicious group of microcalcifications or new suspicious mass. Overall Assessment: Negative, BI-RAD 1 Management: Screening Mammogram of both breasts in [address] [facility] will attempt to contact patient to return for supplemental views and ultrasound if indicated. Patient should continue monthly self-breast exams. A clinical breast exam by your physician is recommended on an annual basis. This exam should not preclude additional follow-up of suspicious palpable abnormalities. Note on Macie scores and lifetime risk: 1. A Macie score greater than 3% is considered moderate risk. If this is the case, consider specialist referral to assess eligibility for a risk reducing agent. 2. If overall lifetime risk for the development of breast cancer is 20% or higher, the patient may qualify for future screening with alternating mammogram and breast MRI. Electronically signed and approved by: Gbariel Paredes DO
== END | disposition home or self-care (01) ==
LOC: RADCTMAIN 06:32
PROVIDERS: ATTEND Family Medicine
DX: Z12.31 Encounter for screening mammogram for malignant neoplasm of breast (principal); Z72.0 Tobacco use; Z78.0 Asymptomatic menopausal state; Z80.3 Family history of malignant neoplasm of breast
CPT/HCPCS: 71271; 77063; 77067

== ENCOUNTER → 2024-03-14 | Outpatient (CLI) | payer BC ==
--- NOTE | 2024-04-11 13:07 | PE ---
Patient: Serena Santana Ordering Physician: Unknown, Unknown ID: [id number] Phone, Pager: Phone : N/A Pager: N/A : [phone] Age/Gender: 53Y, F Primary Location: N/A Procedure: PET CT fusion sk ull to thigh Study Date: 03/14/2024 4:55:00 PM EXAMINATION TYPE: PET CT fusion skull to thigh DATE OF EXAM: 03/27/2024 CLINICAL INDICATION: Lung cancer TECHNIQUE: Following the intravenous administration of 10.75 mCi of F-18 FDG, whole body images are performed from the skull base to the midthigh. Images are reviewed on the computer in the coronal, axial, and sagittal planes. Reconstructed rotating images are created on independent workstation and reviewed on the computer. A non-contrast CT is performed in conjunction with the PET scan. Glucose level 84 mg/dL CT DLP: 224 mGycm, Automated exposure control for dose reduction was used. COMPARISON: CT 07/01/2021, 02/11/2024, PET/CT None, MRI: None FINDINGS: Mediastinal SUV mean is 1.7. Hepatic parenchyma SUV mean is 2.5. SKULL BASE AND NECK: No suspicious radiotracer activity. CHEST, MEDIASTINUM, AND HILAR REGION: * Right upper lung 8 mm pulmonary nodule Max SUV 1.2. * Right lower lobe medial pulmonary nodule measuring 5 mm Max SUV 1.3 ABDOMEN AND PELVIS: No suspicious radiotracer activity. MUSCULOSKELETAL STRUCTURES: No suspicious radiotracer activity. OTHER CT: Few scattered colonic diverticula. Arthrosis course the arterial vasculature. The appendix is normal. Centrilobular emphysema of moderate severity. IMPRESSION: Right upper lung pulmonary nodule with mild uptake findings could represent pronounced change versus early malignancy. Surveillance recommended with CT imaging.
== END | disposition home or self-care (01) ==
LOC: RADPETMAIN 15:30
PROVIDERS: ATTEND Family Medicine
DX: C34.91 Malignant neoplasm of unspecified part of right bronchus or lung (principal); R91.1 Solitary pulmonary nodule; R93.89 Abnormal findings on diagnostic imaging of other specified body structures
CPT/HCPCS: 78815; A9552

== ENCOUNTER 2024-07-01 11:59 | Emergency (ER) | payer BC, OTHER ==
[2024-07-01 12:14] VITALS: TEMP 97.9
--- NOTE | 2024-07-01 12:28 | ED ---
URI HPI - General Chief Complaint: Upper Respiratory Infection Stated Complaint: back pain Time Seen by Provider: 07/01/24 12:15 Source: patient, RN notes reviewed Mode of arrival: ambulatory Limitations: no limitations - History of Present Illness Initial Comments: This is a 53-year-old female the history of COPD presenting to the emergency department chief complaint of congestion, rhinorrhea, productive cough that has been worsening over the past 2 days. Patient states that she is having pain to the left posterior back. She recently got over bronchitis who is battling symptoms of productive cough for approximately 3 weeks and symptoms resolved about 2 weeks ago. She believes that she may have slept wrong and feels like this is a muscle spasm. She denies heart palpitations, dizziness, lightheadedness, shortness of breath, lower extremity edema. Patient denies current steroid use. - Related Data Home Medications Medication Instructions Recorded Confirmed buPROPion HCL [Wellbutrin SR] 150 mg PO BID 04/02/21 01/22/23 Albuterol Sulfate [Proair 1 puff INHALATION BID PRN 01/22/23 01/22/23 Digihaler] Budesonide/Formoterol Fumarate 1 puff INHALATION BID PRN 01/22/23 01/22/23 [Symbicort 160-4.5 Mcg Inhaler] Lansoprazole [Prevacid] 15 mg PO DAILY 01/22/23 01/22/23 Pantoprazole [Protonix] 40 mg PO DAILY 01/22/23 01/22/23 Previous Rx's Medication Instructions Recorded Lidocaine 5% Patch [Lidoderm] 1 patch TOPICAL DAILY #10 patch 07/26/23 Orphenadrine [Norflex] 100 mg PO Q12H 7 Days #14 tab 07/26/23 Azithromycin [Zithromax Z Pack] 0 tab PO DIRECTED #6 tab 07/01/24 predniSONE 50 mg PO DAILY #5 tab 07/01/24 Allergies Allergy/AdvReac Type Severity Reaction Status Date / Time cephalexin [From Keflex] Allergy Abdominal Verified 07/01/24 12:11 Pain,UTI gluten Allergy Abdominal Verified 07/01/24 12:11 Pain Review of Systems ROS Statement: Those systems with pertinent positive or pertinent negative responses have been documented in the HPI. ROS Other: All systems not noted in ROS Statement are negative. Past Medical History Past Medical History: COPD, Fibromyalgia, GERD/Reflux, Osteoarthritis (OA) Additional Past Medical History / Comment(s): Celiac disease , back pain, ALPHA ONE LUNG DISEASE History of Any Multi-Drug Resistant Organisms: None Reported Past Surgical History: Hysterectomy, Tubal Ligation Additional Past Surgical History / Comment(s): PAIN PROC. Polyps removed from vocal cords. Past Anesthesia/Blood Transfusion Reactions: No Reported Reaction Past Psychological History: Bipolar, Depression Smoking Status: Current every day smoker Past Alcohol Use History: Occasional Past Drug Use History: Marijuana - Past Family History Mother Family Medical History: Deep Vein Thrombosis (DVT) Father Family Medical History: Cancer Sister(s) Family Medical History: Deep Vein Thrombosis (DVT) General Exam Limitations: no limitations General appearance: alert, in no apparent distress Eye exam: Present: normal appearance, PERRL, EOMI. Absent: scleral icterus, conjunctival injection, periorbital swelling Neck exam: Present: normal inspection. Absent: tenderness, meningismus, lymphadenopathy Respiratory exam: Present: normal lung sounds bilaterally, chest wall tenderness (posterior left). Absent: respiratory distress, wheezes, rales, rhonchi, stridor Cardiovascular Exam: Present: regular rate, normal rhythm, normal heart sounds. Absent: systolic murmur, diastolic murmur, rubs, gallop, clicks GI/Abdominal exam: Present: soft, normal bowel sounds. Absent: distended, tenderness, guarding, rebound, rigid Extremities exam: Present: normal inspection, full ROM, normal capillary refill. Absent: tenderness, pedal edema, joint swelling, calf tenderness Back exam: Present: normal inspection Course Vital Signs 07/01/24 07/01/24 07/01/24 12:11 13:09 13:18 Temperature 97.9 F Pulse Rate 80 68 72 Respiratory 20 Rate Blood Pressure 135/63 O2 Sat by Pulse 97 Oximetry 07/01/24 14:18 Temperature Pulse Rate 70 Respiratory 16 Rate Blood Pressure 143/92 O2 Sat by Pulse 95 Oximetry Medical Decision Making - Medical Decision Making Was pt. sent in by a medical professional or institution (, PA, WEATHERIZATION OPERATIONS MANAGER, urgent care, hospital, or [facility]...) When possible be specific @ -No Did you speak to anyone other than the patient for history (EMS, parent, family, police, friend...)? What history was obtained from this source @ -No Did you review nursing and triage notes (agree or disagree)? Why? @ -I reviewed and agree with nursing and triage notes Were old charts reviewed (outside hosp., previous admission, EMS record, old EKG, old radiological studies, urgent care reports/EKG's, [facility] records)? Report findings @ -No old charts were reviewed Differential Diagnosis (chest pain, altered mental status, abdominal pain women, abdominal pain men, vaginal bleeding, weakness, fever, dyspnea, syncope, headache, dizziness, GI bleed, back pain, seizure, CVA, palpatations, mental health, musculoskeletal)? @ -COVID 19, RSV, influenza, pneumonia, acute bronchitis, URI, this list is not all inclusive EKG interpreted by me (3pts min.). @ -none X-rays interpreted by me (1pt min.). @ -Chest x-ray reveals a small nodule lateral right upper lobe similar compared to July 2023 with no acute process. CT interpreted by me (1pt min.). @ -None done U/S interpreted by me (1pt. min.). @ -None done What testing was considered but not performed or refused? (CT, X-rays, U/S, labs)? Why? @ -None What meds were considered but not given or refused? Why? @ -None Did you discuss the management of the patient with other professionals (professionals i.e. , PA, WEATHERIZATION OPERATIONS MANAGER, lab, RT, psych nurse, social work supervisor, chute man, teacher, patient safety officer, case maker)? Give summary @ -No Was smoking cessation discussed for >3mins.? @ -No Was critical care preformed (if so, how long)? @ -No Were there social determinants of health that impacted care today? How? (Homelessness, low income, unemployed, alcoholism, drug addiction, transportation, low edu. Level, literacy, decrease access to med. care, prison, rehab)? @ -No Was there de-escalation of care discussed even if they declined (Discuss DNR or withdrawal of care, Hospice)? DNR status @ -No What co-morbidities impacted this encounter? (DM, HTN, Smoking, COPD, CAD, Cancer, CVA, ARF, Chemo, Hep., AIDS, mental health diagnosis, sleep apnea, morbid obesity)? @ -None Was patient admitted / discharged? Hospital course, mention meds given and route, prescriptions, significant lab abnormalities, going to OR and other pertinent info. @ -Discharge. 53-year-old female with posterior left chest wall pain and URI symptoms. On evaluation patient noted to have posterior left chest wall pain that exacerbated palpation. States that this feels similar as when she had a muscle strain in the past. Additionally patient has clinical signs of congestion. With history of COPD she is provided with dose of steroids, pain medication, and DuoNeb breathing treatment pending evaluation. Chest x-ray unremarkable for acute process. COVID, flu, RSV negative. Discussed with patient bedside symptoms are likely secondary to chronic bronchitis and or compounding upper respiratory infection symptoms. She is provided with prescription for steroids and antibiotics and instructed to follow-up with primary care provider for further evaluation. Discussed with Dr. Bolivar Undiagnosed new problem with uncertain prognosis? @ -No Drug Therapy requiring intensive monitoring for toxicity (Heparin, Nitro, Insulin, Cardizem)? @ -No Were any procedures done? @ -No Diagnosis/symptom? @ -chronic bronchitis, productive cough, posterior chest pain Acute, or Chronic, or Acute on Chronic? @ -acute Uncomplicated (without systemic symptoms) or Complicated (systemic symptoms)? @ -uncomplicated Side effects of treatment? @ -No Exacerbation, Progression, or Severe Exacerbation? @ -No Poses a threat to life or bodily function? How? (Chest pain, [place], [place], pneumonia, PE, COPD, DKA, ARF, appy, cholecystitis, CVA, Diverticulitis, Homicidal, Suicidal, threat to staff... and all critical care pts) @ -No - Lab Data Lab Results 07/01/24 Range/Units 12:27 Influenza Type A (PCR) Not Detected (Not Detectd) Influenza Type B (PCR) Not Detected (Not Detectd) RSV (PCR) Not Detected (Not Detectd) SARS-CoV-2 (PCR) Not Detected (Not Detectd) Disposition Clinical Impression: Chronic bronchitis Disposition: HOME SELF-CARE Condition: Good Instructions (If sedation given, give patient instructions): Chronic Bronchitis (ED) Additional Instructions: Please return to the Emergency Department if symptoms worsen or any other concerns. Prescriptions: predniSONE 50 mg PO DAILY #5 tab Azithromycin [Zithromax Z Pack] 0 tab PO DIRECTED #6 tab Is patient prescribed a controlled substance at d/c from ED?: No Referrals: Batsheva Oliveira MD [Primary Care Provider] - 1-2 days Time of Disposition: 14:10
[2024-07-01] MEDS: KETOROLAC 15 MG/ML 1 ML VIAL IM STA (12:55)
[2024-07-01] MEDS: methylPREDNISolone SOD SUCCI 125 MG/2 ML VIAL IM ONE (12:56)
[2024-07-01] MEDS: IPRATROPIUM-ALBUTEROL 3 ML NEB INHALATION STA (13:09)
--- NOTE | 2024-07-01 13:15 | XR ---
EXAMINATION TYPE: XR chest 2V DATE OF EXAM: 07/01/2024 12:37 PM COMPARISON: Chest radiographs from CLINICAL INDICATION: Female, 53 years old with history of left posterior lung pain, hx copd, , TECHNIQUE: PA and lateral views FINDINGS: The cardiomediastinal silhouette, aorta, and pulmonary vasculature are within normal limits. Hyperinf lation. A small nodule lateral right upper lung appears similar from 07/26/2023. Correlate for any kn own workup/history. Otherwise, no consolidation or pleural effusion. IMPRESSION: 1. COPD. Small nodule lateral right upper lobe appears similar compared to 07/26/2023. Correlate for any known previous workup. 2. Otherwise, no acute process. [facility], , 07/01/2024 1:13 PM
[2024-07-01 14:24] VITALS: BP 143/92; PULSE 70; RESP 16
== END 2024-07-01 14:25 | disposition home or self-care (01) ==
LOC: EC 11:59
DX: J42 Unspecified chronic bronchitis (principal); F17.200 Nicotine dependence, unspecified, uncomplicated; Z88.1 Allergy status to other antibiotic agents; Z88.8 Allergy status to other drugs, medicaments and biological substances
CPT/HCPCS: 94640; 93005; 87636; 71046; 99283; 96372 ×2; J1885; J2919

== ENCOUNTER → 2024-07-24 | Outpatient (CLI) | payer OTHER | LOC: CPPFTMAIN 09:52 | PROVIDERS: ATTEND Internal Medicine Critical Care Medicine | DX: J44.9 Chronic obstructive pulmonary disease, unspecified (principal); Z88.1 Allergy status to other antibiotic agents; Z91.018 Allergy to other foods; Z87.891 Personal history of nicotine dependence; Z79.899 Other long term (current) drug therapy; Z79.51 Long term (current) use of inhaled steroids | CPT/HCPCS: 94060; 94726; 94729 ==

== ENCOUNTER → 2024-08-11 | Outpatient (CLI) | payer OTHER ==
--- NOTE | 2024-08-11 07:50 | CT ---
EXAMINATION TYPE: CT chest wo con DATE OF EXAM: 08/11/2024 COMPARISON: PET/CT 03/14/2024 and radiograph 07/01/2024 HISTORY: 54-year-old female R93.89 abnormal finding on cxr TECHNIQUE: Contiguous axial scanning of the chest without IV contrast. Coronal/sagittal reconstructio ns performed. CT DLP: 239.8mGycm. Automatic exposure control utilized for a dose reduction. FINDINGS: The heart is normal size without pericardial effusion. Aorta normal caliber with minimal atherosclero tic arch calcifications. Scattered nonenlarged mediastinal lymph nodes are present. No thoracic lymphadenopathy by CT size cri teria. Advanced emphysematous change redemonstrated some mild patchy atelectasis or scarring inferior lingul a. 5 mm subpleural pulmonary nodule posteromedial right mid lung is unchanged. 9 mm lateral right upper lobe pulmonary nodule measured 8 mm on 03/24/2024 but is new from 2020. No consolidation or pleural effusion. Visualized upper abdomen shows no gross abnormality. Bolus: Moderate degenerative disc disease T12-L1 with grade 1 retrolisthesis. IMPRESSION: 1. COPD with advanced emphysema. A 9 mm right upper lobe pulmonary nodule measured 8 mm on 03/14/2024 a nd is new from 2020. This nodule remains suspicious for an early neoplasm. If no intervention at this time, ongoing close surveillance follow-up is recommended. 2. No acute cardiopulmonary process. [facility], , 08/11/2024 7:47 AM
== END | disposition home or self-care (01) ==
LOC: RADCTMAIN 06:29
PROVIDERS: ATTEND Family Medicine
DX: J44.9 Chronic obstructive pulmonary disease, unspecified (principal); J43.9 Emphysema, unspecified; R91.1 Solitary pulmonary nodule; R93.89 Abnormal findings on diagnostic imaging of other specified body structures
CPT/HCPCS: 71250

== ENCOUNTER 2024-10-07 08:55 | Emergency (ER) | payer OTHER ==
--- NOTE | 2024-10-07 09:13 | ED ---
General Adult HPI - General Chief complaint: Shortness of Breath Stated complaint: left side rib pain Time Seen by Provider: 10/07/24 09:03 Source: patient, RN notes reviewed Limitations: no limitations - History of Present Illness Initial comments: 54 year old female presents to the emergency department for evaluation of left sided rib pain. Patient states that it is in her anterior left ribs under her breast. Patient reports that it "feels like I broke my ribs." This started one week ago after she bent over to get something out of the back of the truck. She states she was seen for this at [facility]. She is unable to take the medication the prescribed because it makes her nauseous. Denies fever, chills. Denies leg swelling, shortness of breath. Pain is reproducible with palpation and worse with movement and breathing. - Related Data Home Medications Medication Instructions Recorded Confirmed buPROPion HCL [Wellbutrin SR] 150 mg PO BID 04/02/21 01/22/23 Albuterol Sulfate [Proair 1 puff INHALATION BID PRN 01/22/23 01/22/23 Digihaler] Budesonide/Formoterol Fumarate 1 puff INHALATION BID PRN 01/22/23 01/22/23 [Symbicort 160-4.5 Mcg Inhaler] Lansoprazole [Prevacid] 15 mg PO DAILY 01/22/23 01/22/23 Pantoprazole [Protonix] 40 mg PO DAILY 01/22/23 01/22/23 Previous Rx's Medication Instructions Recorded Lidocaine 5% Patch [Lidoderm] 1 patch TOPICAL DAILY #10 patch 07/26/23 Orphenadrine [Norflex] 100 mg PO Q12H 7 Days #14 tab 07/26/23 Azithromycin [Zithromax Z Pack] 0 tab PO DIRECTED #6 tab 07/01/24 predniSONE 50 mg PO DAILY #5 tab 07/01/24 Allergies Allergy/AdvReac Type Severity Reaction Status Date / Time cephalexin [From Keflex] Allergy Abdominal Verified 07/01/24 12:11 Pain,UTI gluten Allergy Abdominal Verified 07/01/24 12:11 Pain Review of Systems ROS Statement: Those systems with pertinent positive or pertinent negative responses have been documented in the HPI. ROS Other: All systems not noted in ROS Statement are negative. Past Medical History Past Medical History: COPD, Fibromyalgia, GERD/Reflux, Osteoarthritis (OA) Additional Past Medical History / Comment(s): Celiac disease , back pain, ALPHA ONE LUNG DISEASE History of Any Multi-Drug Resistant Organisms: None Reported Past Surgical History: Hysterectomy, Tubal Ligation Additional Past Surgical History / Comment(s): PAIN PROC. Polyps removed from vocal cords. Past Anesthesia/Blood Transfusion Reactions: No Reported Reaction Past Psychological History: Bipolar, Depression Smoking Status: Current every day smoker Past Alcohol Use History: Occasional Past Drug Use History: Marijuana - Past Family History Mother Family Medical History: Deep Vein Thrombosis (DVT) Father Family Medical History: Cancer Sister(s) Family Medical History: Deep Vein Thrombosis (DVT) General Exam Limitations: no limitations General appearance: alert, in no apparent distress Head exam: Present: atraumatic, normocephalic, normal inspection Eye exam: Present: normal appearance, PERRL, EOMI. Absent: scleral icterus, conjunctival injection, periorbital swelling ENT exam: Present: normal exam, mucous membranes moist Neck exam: Present: normal inspection. Absent: tenderness, meningismus, lymphadenopathy Respiratory exam: Present: chest wall tenderness (right sided), decreased breath sounds. Absent: respiratory distress, wheezes, rales, rhonchi, stridor Cardiovascular Exam: Present: regular rate, normal rhythm, normal heart sounds. Absent: systolic murmur, diastolic murmur, rubs, gallop, clicks GI/Abdominal exam: Present: soft. Absent: distended, tenderness, guarding, rebound, rigid Extremities exam: Present: normal inspection, full ROM, normal capillary refill. Absent: tenderness, pedal edema, joint swelling, calf tenderness Neurological exam: Present: alert, oriented X3 Psychiatric exam: Present: normal affect, normal mood Skin exam: Present: warm, dry, intact, normal color. Absent: rash Course Vital Signs 10/07/24 08:58 Temperature 97.7 F Pulse Rate 110 H Respiratory 24 Rate Blood Pressure 168/91 O2 Sat by Pulse 98 Oximetry Medical Decision Making - Medical Decision Making Was pt. sent in by a medical professional or institution (, PA, AUTOMATIC WINDER OPERATOR, urgent care, hospital, or residential...) When possible be specific @ -[No] Did you speak to anyone other than the patient for history (EMS, parent, family, police, friend...)? What history was obtained from this source @ -[No] Did you review nursing and triage notes (agree or disagree)? Why? @ -[I reviewed and agree with nursing and triage notes] Were old charts reviewed (outside hosp., previous admission, EMS record, old EKG, old radiological studies, urgent care reports/EKG's, residential records)? Report findings @ -[No old charts were reviewed] Differential Diagnosis (chest pain, altered mental status, abdominal pain women, abdominal pain men, vaginal bleeding, weakness, fever, dyspnea, syncope, headache, dizziness, GI bleed, back pain, seizure, CVA, palpatations, mental health, musculoskeletal)? @ -[ ] EKG interpreted by me (3pts min.). @ -none X-rays interpreted by me (1pt min.). @ -[X-ray of the ribs and chest ] CT interpreted by me (1pt min.). @ -[None done] U/S interpreted by me (1pt. min.). @ -[None done] What testing was considered but not performed or refused? (CT, X-rays, U/S, labs)? Why? @ -[None] What meds were considered but not given or refused? Why? @ -[None] Did you discuss the management of the patient with other professionals (professionals i.e. , PA, AUTOMATIC WINDER OPERATOR, lab, RT, psych nurse, social media campaign manager, android platform developer, teacher, dispatch officer, continuous pillowcase cutter)? Give summary @ -[No] Was smoking cessation discussed for >3mins.? @ -[No] Was critical care preformed (if so, how long)? @ -[No] Were there social determinants of health that impacted care today? How? (Homelessness, low income, unemployed, alcoholism, drug addiction, transportation, low edu. Level, literacy, decrease access to med. care, care home, rehab)? @ -[No] Was there de-escalation of care discussed even if they declined (Discuss DNR or withdrawal of care, Hospice)? DNR status @ -[No] What co-morbidities impacted this encounter? (DM, HTN, Smoking, COPD, CAD, Cancer, CVA, ARF, Chemo, Hep., AIDS, mental health diagnosis, sleep apnea, morbid obesity)? @ -[None] Was patient admitted / discharged? Hospital course, mention meds given and route, prescriptions, significant lab abnormalities, going to OR and other pertinent info. @ -[hospital course] Undiagnosed new problem with uncertain prognosis? @ -[No] Drug Therapy requiring intensive monitoring for toxicity (Heparin, Nitro, Insulin, Cardizem)? @ -[No] Were any procedures done? @ -[No] Diagnosis/symptom? @ -[default] Acute, or Chronic, or Acute on Chronic? @ -[default] Uncomplicated (without systemic symptoms) or Complicated (systemic symptoms)? @ -[default] Side effects of treatment? @ -[No] Exacerbation, Progression, or Severe Exacerbation? @ -[No] Poses a threat to life or bodily function? How? (Chest pain, [place], [place], pneumonia, PE, COPD, DKA, ARF, appy, cholecystitis, CVA, Diverticulitis, Homicidal, Suicidal, threat to staff... and all critical care pts) @ -[No] Disposition Clinical Impression: Rib contusion Disposition: HOME SELF-CARE Condition: Stable Instructions (If sedation given, give patient instructions): Rib Contusion (ED) Additional Instructions: Please follow up with your primary care provider. Return to the emergency department for new or worsening symptoms. Is patient prescribed a controlled substance at d/c from ED?: No Referrals: Batsheva Oliveira MD [Primary Care Provider] - 1-2 days
[2024-10-07] MEDS: LIDOCAINE 4% PATCH TOPICAL ONE (09:23)
[2024-10-07] MEDS: KETOROLAC 15 MG/ML 1 ML VIAL IM STA (09:28)
--- NOTE | 2024-10-07 09:36 | XR ---
EXAMINATION TYPE: XR ribs LT w pa chest xray DATE OF EXAM: 10/07/2024 9:29 AM INDICATION: Patient age:Female; 54 years old; Reason for study: pain; [facility]. pain COMPARISON: PET CT 09/18/2024, CT chest 08/11/2024, chest radiograph 07/01/2024 TECHNIQUE: Frontal and oblique views of the left ribs with additional PA chest radiograph. FINDINGS: The ribs have a normal appearance. No evidence of fracture. Overall, the lungs are clear. Hyperinflation. The cardiac silhouette is normal in size. The remaining osseous structures are intac t. Lumbar osteophytosis. IMPRESSION: 1. No acute osseous pathology. 2. COPD changes. [facility], , 10/07/2024 9:34 AM
[2024-10-07] MEDS: HYDROcodone/APAP 5-325MG 1 EACH TAB PO STA (10:45)
[2024-10-07 11:31] VITALS: BP 130/91; PULSE 81; RESP 16; TEMP 97.9
== END 2024-10-07 11:33 | disposition home or self-care (01) ==
LOC: EC 08:55
DX: S20.212A Contusion of left front wall of thorax, initial encounter (principal); F17.200 Nicotine dependence, unspecified, uncomplicated; Z88.1 Allergy status to other antibiotic agents; Z91.09 Other allergy status, other than to drugs and biological substances; X58.XXXA Exposure to other specified factors, initial encounter
CPT/HCPCS: 71101; 99285; 96372; J1885

== ENCOUNTER → 2025-01-15 | Outpatient (CLI) | payer OTHER ==
[2025-01-15 17:32] LABS: Clam IgE <0.10 kU/L; Codfish IgE <0.10 kU/L; Egg White IgE <0.10 kU/L; Peanut IgE <0.10 kU/L; Scallop IgE <0.10 kU/L; Shrimp IgE <0.10 kU/L; Soybean IgE <0.10 kU/L; Walnut IgE (Food) <0.10 kU/L
[2025-01-15 18:00] LABS: Immunoglobulin E <5.00 IU/mL (0.00-114.00)
== END | disposition home or self-care (01) ==
LOC: LABWHC1 10:06
PROVIDERS: ATTEND Nurse Practitioner Family
DX: K90.0 Celiac disease (principal)
CPT/HCPCS: 36415; 82785; 83516; 86003